=== PATIENT | female | born 1955 | race Caucasian/White ===

== ENCOUNTER 2021-06-04 16:13 | Outpatient (CLI) | payer MEDICARE, SELFPAY ==
--- NOTE | ~2021-06-04 | XR_ITS ---
XR foot RT min 3V DATE: 06/04/2021 16:35 INDICATION: Medial pain, swelling TECHNIQUE: 4 views COMPARISON: None FINDINGS: Mild plantar calcaneal enthesopathy. Mild hallux valgus and bunion deformity. No fracture or dislocation, periosteal reaction or boned destruction. IMPRESSION: Mild hallux valgus and bunion deformity Mild plantar calcaneal enthesopathy Reviewed, dictated and finalized at location B. F ACCOUNTANT
== END 2021-06-04 16:14 | disposition home or self-care (01) ==
LOC: ANHIMG 16:17
PROVIDERS: PCP Family Medicine; Visit Provider Family Medicine
DX: M20.11 Hallux valgus (acquired), right foot (principal); M77.31 Calcaneal spur, right foot
CPT/HCPCS: 73630

== ENCOUNTER 2022-05-16 14:36 | Outpatient (CLI) | payer MEDICARE, SELFPAY ==
--- NOTE | ~2022-05-16 | DEXA_ITS ---
Bone Density Report Name: NATHANIEL HIRSCH Age: 66 Sex: Female Ethnicity: White Date of : 1955 Indication: postmenopausal; screening for osteoporosis; height loss; prior fracture; Referring Provider: CASSIE GONZALES Study: Bone densitometry was performed. Exam Date: May 16, 2022 Accession number: [id number] Bone Density: Region BMD T-score Z-score Classification AP Spine(L1-L4) 1.082 0.3 2.3 Normal Femoral Neck (Left) 0.686 -1.5 0.2 Osteopenia Total Hip (Left) 0.889 -0.4 1.0 Normal Femoral Neck (Right) 0.665 -1.7 0.1 Osteopenia Total Hip (Right) 0.862 -0.7 0.8 Normal Total Hip Mean 0.875 -0.6 0.9 Normal World Health Organization criteria for BMD impression classify patients as: Normal (T-score at or above -1.0), Osteopenia (T-score between -1.0 and -2.5), or Osteoporosis (T-score at or below -2.5). 10-year Fracture Risk: FRAX not reported because: Prior hip or vertebral fracture Clinical Information Provided by Patient: Have had a previous hip or vertebral fracture Has had a low trauma fracture Has used the following medications: Vitamin D, Calcium Patient maximum height was 66 Menopause Age: 53 Onset of menses at age 11 Number of children 4 Impression: The patient has low bone mass, based on the Right Femoral Neck T-score. The patient has risk factors, including: previous fracture. Discussion: INCREASED RISK OF FRACTURE DUE TO HISTORY OF FRACTURE. The patient's previous fracture puts the patient at high risk of a future fracture. In untreated patients, the risk of osteoporotic fracture increases approximately two-fold for each 1.0 SD decrease in T-score. Low bone density is not the only risk factor for fracture; also consider factors such as patient's age, frailty or poor health, risk of falling, risk of injury, previous osteoporotic fracture, family history of osteoporosis, cigarette smoking, low body weight, etc. Not everyone with a low trauma fracture has osteoporosis; osteomalacia and other metabolic bone disorders should also be considered. Patients who have osteoporosis should be evaluated for specific diseases and conditions (secondary causes) that may cause or contribute to bone loss and fracture risk. National Osteoporosis Foundation (NOF) recommends pharmacologic intervention for patients with a prior hip or vertebral fracture regardless of BMD T-score. The patient should follow a healthful lifestyle (good nutrition with adequate calcium and vitamin D, and appropriate weight-bearing exercise). Follow-Up: Consider a repeat BMD and Vertebral Fracture Assessment (VFA) exam in 2 years or sooner if medically necessary, to reassess this patient's status. Reported by: BERKLEY on 05/16/2022 3:15:00 PM. Reviewed, dictated
--- NOTE | ~2022-05-16 | MM_ITS ---
EXAMINATION: MM screening michael BI w darshan HISTORY: Screening TECHNIQUE: Craniocaudal and mediolateral oblique 3-D tomosynthesis images were obtained and synthetic 2-D images were generated. CAD analysis was submitted and interpreted. COMPARISON: 08/30/2004 BREAST PARENCHYMAL COMPOSITION: The breasts are heterogeneously dense, which may obscure small masses . FINDINGS: There is no evidence of suspicious mass, calcification, or architectural distortion to sugg est malignancy in either breast. There has been no suspicious interval change. IMPRESSION: 1. No mammographic evidence of malignancy. 2. Recommend routine screening mammography in one year. BI-RADS Category 1: Negative Reviewed, dictated and finalized at location A. TOE STITCHER
== END 2022-05-16 14:37 | disposition home or self-care (01) ==
LOC: ANHIMG 14:44
PROVIDERS: PCP Family Medicine; Visit Provider Obstetrics & Gynecology Gynecology
DX: Z12.31 Encounter for screening mammogram for malignant neoplasm of breast (principal); Z78.0 Asymptomatic menopausal state; M85.852 Other specified disorders of bone density and structure, left thigh; M85.851 Other specified disorders of bone density and structure, right thigh
CPT/HCPCS: 77063; 77067; 77080

== ENCOUNTER 2024-09-23 09:36 | Outpatient (CLI) | payer MEDICARE, SELFPAY ==
--- NOTE | ~2024-09-23 | MM_ITS ---
Examination: MM screening [facility] BI W darshan INDICATION: Asymptomatic, referred for screening mammogram COMPARISON: 05/16/2022 and 08/30/2004 TECHNIQUE: Digital Breast Tomosynthesis CC, MLO views of Both breasts were obtained with computer-ai ded detection to assist in interpretation of the study. FINDINGS: The breasts are heterogeneously dense, which may obscure small masses. There is a focal asymmetry in the superior lateral left breast centered at 4 cm posterior to the nipp le. No other focal dominant mass, architectural distortion, or suspicious microcalcifications are seen. IMPRESSION: 1. Left breast Focal asymmetry. 2. No evidence of malignancy in the Right breast. RECOMMENDATION: Left breast Diagnostic mammogram with true lateral, appropriate spot compression views and an ultraso und if needed. BI-RADS 0, INCOMPLETE, NEEDS ADDITIONAL IMAGING EVALUATION Reviewed, dictated and finalized at location B. IMPRESSION: 1. Left breast Focal asymmetry. 2. No evidence of malignancy in the Right breast. RECOMMENDATION: Left breast Diagnostic mammogram with true lateral, appropriate spot compressio n views and an ultrasound if needed. BI-RADS 0, INCOMPLETE, NEEDS ADDITIONAL IMAGING EVALUATION
--- OUTSIDE RECORDS SUMMARY | 2024-09-23 09:40 | XMS_ITS | Clinical Summary ---
Author Organization [facility] Address [address] [place] [address] Phone Care Team Providers Care Parachute Harness Rigger Name Role Phone Eliseo Rausch MD Primary Care Provider [phone] Frank Lloyd DO Unavailable Allergies No known active allergies Medications polyethylene glycol (MIRALAX) Powder Mix the entire bottle with 64 oz of a clear liquid. Use as directed by the office for colonoscopy prep. 255 g 0 6 Active Ergocalciferol (VITAMIN D2 PO) Take 1.25 mg by mouth twice a week. Active spironolactone (ALDACTONE) 100 MG Tablet Take 100 mg by mouth 2 times daily. Active Immunizations Immunization Administration Dates Next Due Covid-19, Mrna, Lnp-s, PF, 1 00 mcg/0.5 mL Dose (Moderna) 06/29/2020,06/01/2020 Family History Medical History Relation Name Comments Diabetes Brother Lung Cancer Brother Diabetes Father Hypertension Father Prostate Cancer Father Diabetes Mother Hypertension Mother Cancer Sister Brother Relation Name Status Comments Brother Father Mother Sister Social History Tobacco Use Types Packs/Day Years Used Date Smoking Tobacco: Never Smokeless Tobacco: Never Alcohol Use Standard Drinks/Week Comments No 0 (1 standard drink = 0.6 oz pur e alcohol) Comments Unknown Sex and Gender Information Value Date Recorded Sex Assigned at Not on file Legal Sex Female 3:44 PM CDT Gender Identity Not on file Sexual Orientation Not on file Plan of Treatment Health Maintenance Due Date Last Done Comments DEXA Bone Density 1955 Hepatitis C Virus (HCV) Screening 1955 TdaP Immunization 1955 Cologuard 10/08/2003 Immunochemical Fecal Occult Blood 10/08/2003 Mammogram 10/08/2003 Pneumococcal Immunization (5 0+ years) (1 of 1 - PCV) 10/08/2003 Zoster Immunization (1 of 2) 10/08/2003 Influenza Immunization (#1) 2023 SARS-COV-2 Immunization ( season) 2023 03/01/2021, 06/29/2020, 06/01/2020 Colonoscopy 02/27/2026 02/28/2016 Colorectal Cancer Screening 02/27/2026 Respiratory Syncytial Virus (RSV) Immunization (Adult) (1 - 1-dose 75+ series) 2028 02/28/2016 Hepatitis B Immunization Aged Out No longer eligible based on patient's age to complete this topic Meningococcal Immunization (ACWY) Aged Out No longer eligible b ased on patient's age to complete this topic Rotavirus Immunization Aged Out No lo nger eligible based on patient's age to complete this topic Procedures Procedure Name Priority Date/Time Associated Diagnosis Comments COLONOSCOPY Routine 02/28/2016 from Last 3 Months or Most Recently Relevant to Health Maintenance Results * COLONOSCOPY (02/28/2016) Eliseo Rausch MD PROCEDURE/MINOR SURGICAL O RDERABLES Final Result from Last 3 Months or Most Recently Relevant to Health Maintenance Care Teams Parachute Harness Rigger Relationship Specialty Start Date End Date Eliseo Rausch MD [address] [place] [address] PCP - General Family Medicine 11/14/15 Frank Lloyd DO [address] [place] [address] Gastroenterology 11/14/15
--- OUTSIDE RECORDS SUMMARY | 2024-09-23 09:40 | XMS_ITS | Encounter Summary ---
Author Organization [facility] Address [address] [place] [address] Phone Care Team Providers Care Boat Carpenter Mechanic Name Role Phone Eliseo Rausch MD Primary Care Provider [phone] Nicole Alexander MD Primary Care Provider Eliseo Rausch MD Primary Care Provider [phone] Nicole Alexander MD Primary Care Provider Encounter Details Date Type Department Care Team (Late st Contact Info) Description 08/13/2017 Orders Only [facility] ProviderJana MD [address] [place] [address] Social History Tobacco Use Types Packs/Day Years Used Date Smoking Tobacco: Never Comments Unknown Sex and Gender Information Value Date Recorded Sex Assigned at Not on file Legal Sex Female 2:46 AM TANK STORAGE SUPERVISOR Gender Identity Not on file Sexual Orientation Not on file documented as of this encounter Plan of Treatment Not on file documented as of this encounter Procedures Procedure Name Priority Date/Time Associated Diagnosis Comments DISCHARGE LABORATORY CUMULATIVE REPORT 08/13/2017 12:00 AM CDT documented in this encounter Results * DISCHARGE LABORATORY CUMULATIVE REPORT (08/13/2017 12:00 AM CDT) Narrative 08/13/2017 12:00 AM CDT Ordered by an unspecified provider. us Historical Provider LAB BLOOD ORDERABLES Matilde l Result documented in this encounter Visit Diagnoses Not on filedocumented in this encounter Care Teams Boat Carpenter Mechanic Relationship Specialty Start Date End Date Eliseo Rausch MD [address] [place] [address] PCP - General 08/13/17 08/13/17 Nicole Alexander MD [address] [facility] [address] [address] PCP - General 08/14/17 10/29/17 Eliseo Rausch MD [address] [place] [address] PCP - General 10/30/17 12/12/20 Nicole Alexander MD [address] [facility] [address] [address] PCP - General 12/13/20 documented as of this encounter
--- OUTSIDE RECORDS SUMMARY | 2024-09-23 09:40 | XMS_ITS | Referral Summary ---
Author Organization [facility] Address [address] [place] [address] Care Team Providers Care Scrap Materials Buyer Name Role Phone Nicole Alexander MD Primary Care Provider Allergies No known active allergies Medications spironolactone (ALDACTONE) 100 mg tablet Take 100 mg by mouth daily. Active aspirin 81 mg tablet Take 81 mg by mouth daily. Active VITAMIN D2 50,000 unit capsule 01/06/2018 Active Eliquis 5 mg tablet 01/25/2021 Active Active Problems Problem Noted Date Diagnosed Date Closed fracture of acetabulum 02/20/2021 Closed fracture of navicular bone of foot 2020 Calculus of kidney 07/30/2017 Calculus of ureter 07/30/2017 Complete tear of rotator cuff 07/12/2013 Arthralgia of shoulder 07/11/2013 Social History Tobacco Use Types Packs/Day Years Used Date Smoking Tobacco: Never Smokeless Tobacco: Never Tobacco Cessation:Counseling Given: No Alcohol Use Standard Drinks/Week Comments No 0 (1 standard drink = 0.6 oz pur e alcohol) AUDIT-C Answer Date Recorded Q1: How often do you have a drink containing alc ohol? Never 03/04/2021 Average Number of Drinks Not on file 021 Frequency of Binge Drinking Not on file 02/18 Comments No Sex and Gender Information Value Date Recorded Sex Assigned at Not on file Legal Sex Female 2:46 AM HANDLING TECH Gender Identity Not on file Sexual Orientation Not on file Last Filed Vital Signs Vital Sign Reading Time Taken Comments Blood Pressure 148/87 03/13/2021 11:11 AM HANDLING TECH Pulse 84 03/13/2021 11:11 AM HANDLING TECH Temperature 36.7 C (98.1 F) 03/13/2021 11:11 AM HANDLING TECH Respiratory Rate 16 03/13/2021 11:1 1 AM HANDLING TECH Oxygen Saturation 95% 03/13/2021 11: 11 AM HANDLING TECH Inhaled Oxygen Concentration - - Weight 73.3 kg (161 lb 11.2 oz) 021 11:11 AM HANDLING TECH Height 167.6 cm (5' 6) 03/13/2021 11:1 1 AM HANDLING TECH Body Mass Index 26.1 03/13/2021 11:11 AM HANDLING TECH Plan of Treatment Not on file Medical Devices Implanted Type Area Expansion Joint Finisher Device Identifier Shelf Expiration Date Model / Serial / Lot [employer] Inlay [place] 6fr 24cm Pusher Fluoro Marker Atraumatic Insertion - [id number] Implanted:Qty: 1 on 09/22/2017 by Alvaro Gee MD at [facility] Stent Right: Urethra [employer] 02/27/2022 [id number] / / Description:Bard InLay Optim a 6x24 Insurance [email or web address] PPO MEDICARE [employer] CLAIMS OFFICE AETNA SENIOR SUPPLEMENT CIGNA MEDICARE AETNA SENIOR SUPPLEMENT Care Teams Scrap Materials Buyer Relationship Specialty Start Date End Date Nicole Alexander MD [address] [facility] [address] [place] [address] PCP - General 12/13/20
--- OUTSIDE RECORDS SUMMARY | 2024-09-23 09:40 | XMS_ITS | Clinical Summary ---
Author Organization [facility] Address [address] [place] [address] Care Team Providers Care Supervisory Forester Name Role Phone Nicole Alexander MD Primary [...] rotator cuff 07/12/2013 Arthralgia of shoulder 07/11/2013 Surgical History Surgery Date Site/Laterality Comments ROTATOR CUFF REPAIR 04/20/2013 - 04/19/2014 Right CATARACT EXTRACTION, BILATERAL 03/20/2016 - 04/19/2016 Bilateral INTRAOCULAR LENS INSERTION EYE SURGERY CATARACT EXTRACTION Bilateral Medical History Medical History Date Comments Kidney stone Cataract Arthritis Eye trauma 01/14/2021 OS orbital floor fracture with lateral wall fracture, minimally displaced left ZMC fracture Family History Medical History Relation Name Comments Diabetes Brother 1 Family history of diabetes mellitus - (Added by TW Conv) Gout Brother 2 Family history of gout - (Added by TW Conv) Hemochromatosis Brother 3 Family histo ry of hemochromatosis - (Added by TW Conv) Cancer Father Family history of malignant neoplasm - (Added by TW Conv) Diabetes Father Family history of diabetes mellitus - (Added by TW Conv) Hypertension Father Family history of hypertension - (Added by TW Conv) Arthritis Mother Family history of arthritis - (Added by Conv) Diabetes Mother Family history of diabetes mellitus - (Added by Conv) Hypertension Mother Family history of hypertension - (Added by Conv) Stroke Mother Family history of cerebrovascular accident - (Added by Conv) Cancer Sister Family history of malignant neoplasm - (Added by Conv) Glaucoma Neg Hx Macular degeneration Neg Hx Relation Name Status Comments Brother 1 Brother 2 Brother 3 Father Mother Sister Social History Tobacco Use Types Packs/Day Years Used Date Smoking Tobacco: Never Smokeless Tobacco: Never Tobacco Cessation:Counseling Given: No Alcohol Use Standard Drinks/Week Comments No 0 (1 standard drink = 0.6 oz pur e alcohol) AUDIT-C Answer Date Recorded Q1: How often do you have a drink containing alc ohol? Never 03/04/2021 Average Number of Drinks Not on file Frequency of Binge Drinking Not on file 02/18 Comments No Sex and Gender Information Value Date Recorded Sex Assigned at Not on file Legal Sex Female 2:46 AM DIGITAL IMAGING SPECIALIST Gender Identity Not on file Sexual Orientation Not on file Obstetrics History Last Filed Vital Signs Vital Sign Reading Time Taken Comments Blood Pressure 148/87 03/13/2021 11:11 AM DIGITAL IMAGING SPECIALIST Pulse 84 03/13/2021 11:11 AM DIGITAL IMAGING SPECIALIST Temperature 36.7 C (98.1 F) 03/13/2021 11:11 AM DIGITAL IMAGING SPECIALIST Respiratory Rate 16 03/13/2021 11:1 1 AM DIGITAL IMAGING SPECIALIST Oxygen Saturation 95% 03/13/2021 11: 11 AM DIGITAL IMAGING SPECIALIST Inhaled Oxygen Concentration - - Weight 73.3 kg (161 lb 11.2 oz) 021 11:11 AM DIGITAL IMAGING SPECIALIST Height 167.6 cm (5' 6) 03/13/2021 11:1 1 AM DIGITAL IMAGING SPECIALIST Body Mass Index 26.1 03/13/2021 11:11 AM DIGITAL IMAGING SPECIALIST Plan of Treatment Not on file Medical Devices Implanted Type Area Grounds Worker Device Identifier Shelf Expiration Date Model / Serial / Lot [employer] Inlay [place] 6fr 24cm Pusher Fluoro Marker Atraumatic Insertion - [id number] Implanted:Qty: 1 on 09/22/2017 by Alvaro Gee MD at [facility] Stent Right: Urethra [employer] 02/27/2022 [id number] / / Description:Bard InLay Optim a 6x24 Insurance [facility] PPO [facility]IC[facility] [employer] CLAIMS OFFICE AETNA SENIOR SUPPLEMENT CIGNA MEDICARE AETNA SENIOR SUPPLEMENT Care Teams Supervisory Forester Relationship Specialty Start Date End Date Nicole Alexander MD [address] [facility] [address] [place] [address] [facility] - General 12/13/20
== END 2024-09-23 09:37 | disposition home or self-care (01) ==
LOC: ANHIMG 09:37
PROVIDERS: PCP Family Medicine; Visit Provider Obstetrics & Gynecology Gynecology
DX: Z12.31 Encounter for screening mammogram for malignant neoplasm of breast (principal); R92.8 Other abnormal and inconclusive findings on diagnostic imaging of breast
CPT/HCPCS: 77063; 77067

== ENCOUNTER 2024-12-02 12:10 | Outpatient (CLI) | payer MEDICARE, SELFPAY ==
--- NOTE | ~2024-12-02 | MMUS_ITS ---
EXAMINATION: MM diagnostic michael LT w darshan, US breast LT limited HISTORY: Follow-up left breast asymmetry TECHNIQUE: Additional 3-D tomosynthesis images of the left breast were performed and synthetic 2-D im ages were generated. CAD analysis was submitted and interpreted. High resolution Limited left breast ultrasound was performed. COMPARISON: Comparison to multiple prior studies sequentially, with oldest reviewed study dated 05/16. BREAST PARENCHYMAL COMPOSITION: Dense: The breasts are heterogeneously dense, which may obscure small masses FINDINGS: MAMMOGRAPHIC FINDINGS: There is a spiculated mass in the upper outer quadrant of the left breast, posterior third. There are no suspicious calcifications. ULTRASOUND: Limited left breast ultrasound: At 12:30, 4 cm from the nipple there is an irregular shaped hypoechoi c mass measuring 7 x 5 x 4 mm without internal vascularity or significant posterior features. This co rresponds to the area of mammographic abnormality. At 1:00, 8 cm from the nipple there is an intramam dennys lymph node measuring 9 mm. In the subcutaneous tissues of the left breast at 1:00, 5 cm from the nipple there is a small cystic mass measuring 2 mm, likely sebaceous cysts. At 3:00, 3 cm from the n ipple there is a 7 mm cyst. In the left axilla there is normal left axillary lymph nodes. IMPRESSION: 1. Suspicious left breast mass at 12:30, 4 cm from the nipple corresponding to the area of mammograph ic abnormality. 2. Recommend ultrasound-guided left breast biopsy. BI-RADS category 5, highly suggestive of malignancy. Reviewed, dictated and finalized at location A. IMPRESSION: 1. Suspicious left breast mass at 12:30, 4 cm from the nipple corresponding to the area of mammographic abnormality. 2. Recommend ultrasound-guided left breast biopsy. BI-RADS category 5, highly suggestive of malignancy.
--- OUTSIDE RECORDS SUMMARY | 2024-12-02 12:13 | XMS_ITS | Encounter Summary ---
Author Organization [facility] Address [address] [place] [address] Phone Care Team Providers Care Forensic Document Examiner Name Role Phone Eliseo Rausch MD Primary Care Provider [phone] Nicole Alexander MD Primary Care Provider Eliseo Rausch MD Primary Care Provider [phone] Nicole Alexander MD Primary Care Provider Encounter Details Date Type Department Care Team (Late st Contact Info) Description 08/13/2017 Orders Only [facility] ProviderJana MD [address] [place] [address] Social History Tobacco Use Types Packs/Day Years Used Date Smoking Tobacco: Never Comments Unknown Sex and Gender Information Value Date Recorded Sex Assigned at Not on file Legal Sex Female 2:46 AM GRID INSPECTOR Gender Identity Not on file Sexual Orientation [...] AM CDT Ordered by an unspecified provider. Historical Provider LAB BLOOD ORDERABLES Matilde l Result documented in this encounter Visit Diagnoses Not on filedocumented in this encounter Care Teams Forensic Document Examiner Relationship Specialty Start Date End Date Eliseo Rausch MD [address] [place] [address] PCP - General 08/13/17 08/13/17 Nicole Alexander MD [address] [facility] [address] [place] [address] PCP - General 08/14/17 10/29/17 Eliseo Rausch MD [address] [place] [address] PCP - General 10/30/17 12/12/20 Nicole Alexander MD [address] [facility] [address] [place] [address] PCP - General 12/13/20 documented as of this encounter
--- OUTSIDE RECORDS SUMMARY | 2024-12-02 12:13 | XMS_ITS | Clinical Summary ---
Author Organization [facility] Address [address] [place] [address] Care Team Providers Care Psychology Associate Name Role Phone Nicole Alexander MD Primary [...] history of hypertension - (Added by Conv) Arthritis Mother Family history of arthritis [...] on file Legal Sex Female 2:46 AM BUTCHER ASSISTANT Gender Identity Not on file Sexual Orientation Not on file Obstetrics History Last Filed Vital Signs Vital Sign Reading Time Taken Comments Blood Pressure 148/87 03/13/2021 11:11 AM BUTCHER ASSISTANT Pulse 84 03/13/2021 11:11 AM BUTCHER ASSISTANT Temperature 36.7 C (98.1 F) 03/13/2021 11:11 AM BUTCHER ASSISTANT Respiratory Rate 16 03/13/2021 11:1 1 AM BUTCHER ASSISTANT Oxygen Saturation 95% 03/13/2021 11: 11 AM BUTCHER ASSISTANT Inhaled Oxygen Concentration - - Weight 73.3 kg (161 lb 11.2 oz) 021 11:11 AM BUTCHER ASSISTANT Height 167.6 cm (5' 6) 03/13/2021 11:1 1 AM BUTCHER ASSISTANT Body Mass Index 26.1 03/13/2021 11:11 AM BUTCHER ASSISTANT Plan of Treatment Not on file Medical Devices Implanted Type Area Nitriles Lab Technician Device Identifier Shelf Expiration Date Model / Serial / Lot [employer] Inlay [place] 6fr 24cm Pusher Fluoro Marker Atraumatic Insertion - [id number] Implanted:Qty: 1 on 09/22/2017 by Alvaro Gee MD at [facility] Stent Right: Urethra [employer] 02/27/2022 [id number] / / Description:Bard Shanna caruso 6x24 Insurance [facility] PPO MEDICARE HUMAN CLAIMS OFFICE AETNA SENIOR SUPPLEMENT CIGNA MEDICARE AETNA SENIOR SUPPLEMENT Care Teams Psychology Associate Relationship Specialty Start Date End Date Nicole Alexander MD [address] [facility] [address] [facility] [address] [place] [address] PCP - General 12/13/20
--- OUTSIDE RECORDS SUMMARY | 2024-12-02 12:13 | XMS_ITS | Clinical Summary ---
Author Organization [facility] Address [address] [place] [address] Phone Care Team Providers Care Call Taker Name Role Phone Eliseo Rausch MD Primary Care Provider [phone]- [phone] Frank Lloyd DO Unavailable [phone] Allergies No known active allergies Medications polyethylene [...] Health Maintenance Due Date Last Done Comments Hepatitis C Virus (HCV) Screening 1955 TdaP Immunization 1955 Cologuard 1998 Immunochemical Fecal Occult Blood 1998 Pneumococcal Immunization (5 0+ years) (1 of 1 - PCV) 10/08/2003 Zoster Immunization (1 of 2) 10/08/2003 SARS-COV-2 Immunization (4 - season) 2023 03/01/2021, 06/29/2020, 06/01/2020 Influenza Immunization (#1) 2024 Colonoscopy 02/27/2026 02/28/2016 Colorectal Cancer Screening 02/27/2026 Respiratory Syncytial Virus (RSV) Immunization (Adult) (1 - 1-dose 75+ series) 2028 Hepatitis B Immunization Aged Out No longer eligible based on patient's age to complete this topic Human Papillomavirus (HPV) Immunization Aged Out No longer eligible b ased [...] Recently Relevant to Health Maintenance Care Teams Call Taker Relationship Specialty Start Date End Date Eliseo Rausch MD [address] [place] [address] PCP - General Family Medicine 11/14/15 Frank Lloyd DO [address] [place] [address] Gastroenterology 11/14/15
== END 2024-12-02 12:11 | disposition home or self-care (01) ==
LOC: ANHIMG 12:11
PROVIDERS: PCP Family Medicine; Visit Provider Obstetrics & Gynecology Gynecology
DX: R92.8 Other abnormal and inconclusive findings on diagnostic imaging of breast (principal)
CPT/HCPCS: 76642; 77061; 77065; G0279

== ENCOUNTER 2024-12-26 07:21 | Outpatient (CLI) | payer MEDICARE, SELFPAY ==
--- NOTE | ~2024-12-26 | MMUS_ITS ---
PROCEDURE: US breast biopsy LT w image, MM post biopsy diagnostic LT CLINICAL HISTORY: 69-year-old female with suspicious left breast mass at 12:30 o'clock, presents for ultrasound-guided core needle biopsy procedure. COMPARISON: Ultrasound 12/02/2024 Following informed consent including risks, benefits, and possible complications, the patient was brought to the ultrasound suite. A time-out procedure was performed. A preliminary ultrasound of the left breast was performed, redemonstrating irregular shaped hypoechoic mass at 12:30, 4 cm from the nipple. The patient was prepped and draped in the usual sterile fashion. 1% lidocaine was instilled into the subcutaneous tissues. 1% lidocaine without epinephrine was injected into the deep tissues just inferior to the lesion. Approximately 15cc lidocaine was administered. A small skin fahad was made. Multiple core samples were obtained with a 13-gauge vacuum assisted biopsy needle. A post biopsy butterfly hydromark marker was placed at the biopsy site. Postprocedural mammogram of the left breast in craniocaudal and mediolateral projections reveal the post biopsy metal marker in good position. The patient tolerated the procedure well and was without immediate postprocedural complications. IMPRESSION: Successful ultrasound guided biopsy of left breast mass. A post biopsy butterfly hydromark marker was placed at the biopsy site, which is seen on postprocedural mammogram. The patient tolerated the procedure well without immediate postprocedure complications. The patient was given postprocedural instructions and sent home in stable condition. Reviewed, dictated and finalized at location B. IMPRESSION: Successful ultrasound guided biopsy of left breast mass. A post bio psy butterfly hydromark marker was placed at the biopsy site, which is seen on postprocedural mammogram. The patient tolerated the procedure well without immediate postprocedure compli cations. The patient was given postprocedural instructions and sent home in sta ble condition.
--- NOTE | 2024-12-26 08:38 | S_PTH ---
PATIENT: Migdalia Bond LOC: [facility] U#:[id number] AGE/SX: 69/F ROOM: RE12/26/[address]: Sherry Garcia MD : [id number] BED: DIS: 12/26/2024 SPEC #: [id number] RECD: 12/26/24 09:49 STATUS: JARROD SALCIDO #: [id number] GAYE: 12/26/24 08:[address]: Sherry Garcia DEPT: [facility] Surgical RECD BY: Bora Lagos ENTERED: 12/26/24 09:49 SP TYPE: Surgical OTHR DR: Nicole Alexander MD Tissues: A - Breast Biopsy Procedures: Hematoxylin and Eosin Stain E-Cadherin Gross and Microscopic Level 4 ER-60 CO-60 MIB-60 HER 2-60
== END 2024-12-26 07:22 | disposition home or self-care (01) ==
LOC: ANHFOHIMG 07:22
PROVIDERS: PCP Family Medicine; Visit Provider Surgery
DX: N63.25 Unspecified lump in the left breast, overlapping quadrants (principal); R92.8 Other abnormal and inconclusive findings on diagnostic imaging of breast
CPT/HCPCS: 19083; 77065; 88305; 88342; 88360; A4648

== ENCOUNTER 2025-01-04 13:40 | Outpatient (CLI) | payer MEDICARE, SELFPAY ==
--- NOTE | ~2025-01-04 | MR_ITS ---
MR breast BI wo/w con INDICATION:69 year old female with newly diagnosed left breast invasive lobular carcinoma at ultrasound-guided core needle biopsy of a mass at 12:30 o'clock completed on 12/26/2024. She presents for evaluation of extent of disease. TECHNIQUE: MRI of the breasts perform using standard protocol pre-and post IV contrast with the following sequences: Axial T2 STIR, axial T1, axial vibrant T1 with fat suppression precontrast and multiphasic postcontrast. 14 cc MultiHance administered intravenously. COMPARISON: Mammogram and ultrasound dated 09/23/2024 and 12/26/2024. FINDINGS: There is Heterogeneous fibroglandular tissue that demonstrates Mild and is Symmetric. Right breast: There are no abnormalities on the precontrast sequences. There is mild background parenchymal enhancement with background parenchymal nodular enhancement pattern. Linear skin enhancement seen in the inferior lateral right breast demonstrate features compatible with fat necrosis related to previous surgery. No areas of enhancement meeting threshold criteria on CAD analysis. Nipple areolar complex is normal in appearance. No evidence of signal abnormalities in the axillary or internal mammary node distributions. LEFT BREAST: There is a 1.4 x 1.2 cm enhancing mass containing biopsy clip artifact in the superior lateral at middle to posterior location. This lesion correlates to the known biopsy-proven breast malignancy. Postbiopsy changes are noted that extend to the overlying skin, however there is no involvement of the overlying skin, nipple and areolar complex all the chest wall. There is mild background parenchymal nodular enhancement pattern. No other enhancing lesions following contrast administration. The nipple areolar complex is normal in appearance. No evidence of signal abnormalities in the axillary or internal mammary node distributions.] IMPRESSION: 1: Left breast 1.4 cm enhancing mass containing biopsy clip artifact in the superior lateral location correlates to the known biopsy-proven breast malignancy. No involvement of the overlying skin, nipple areolar complex or a chest wall. 2. No evidence of malignancy within the right breast. 3. The chest wall and axillary portion of the examination are unremarkable. RECOMMENDATION: Continue appropriate medical oncology, and surgical oncology management. BI-RADS 6, BIOPSY PROVEN MALIGNANCY Reviewed, dictated and finalized at location B. IMPRESSION: 1: Left breast 1.4 cm enhancing mass containing biopsy clip artifact in the berger perior lateral location correlates to the known biopsy-proven breast malignancy . No involvement of the overlying skin, nipple areolar complex or a chest wall. 2. No evidence of malignancy within the right breast. 3. The chest wall and axillary portion of the examination are unremarkable. RECOMMENDATION: Continue appropriate medical oncology, and surgical oncology management. BI-RADS 6, BIOPSY PROVEN MALIGNANCY
--- OUTSIDE RECORDS SUMMARY | 2025-01-04 14:04 | XMS_ITS | Encounter Summary ---
Author Organization [facility] Address [address] [place] [address] Phone Care Team Providers Care Juvenile Justice Specialist Name Role Phone Eliseo Rausch MD Primary Care Provider [phone] Nicole Alexander MD Primary Care Provider Eliseo Rausch MD Primary Care Provider [phone] Nicole Alexander MD Primary Care Provider Encounter Details Date Type Department Care Team (Late st Contact Info) Description 08/13/2017 Orders Only [facility] ProviderJana MD [address] [place] [address] Social History Tobacco Use Types Packs/Day Years Used Date Smoking Tobacco: Never Comments Unknown Sex and Gender Information Value Date Recorded Sex Assigned at Not on file 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 Gender Identity Not on file Sexual Orientation [...] on filedocumented in this encounter Care Teams Juvenile Justice Specialist Relationship Specialty Start Date End Date Eliseo Rausch MD [address] [place] [address] PCP - General 08/13/17 08/13/17 Nicole Alexander MD [address] [facility] [address] [place] [address] PCP - General 08/14/17 10/29/17 Eliseo Rausch MD [address] [place] [address] PCP - General 10/30/17 12/12/20 Nicole Alexander MD [address] [facility] [address] [place] [address] PCP - General 12/13/20 documented as of this encounter
--- OUTSIDE RECORDS SUMMARY | 2025-01-04 14:04 | XMS_ITS | Clinical Summary ---
Author Organization [facility] Address [address] [place] [address] Phone Care Team Providers Care Securities Settlement Processor Name Role Phone Eliseo Rausch MD Primary Care Provider [phone]- [phone] Frank Lloyd DO Unavailable [phone] Allergies No known active allergies Medications [...] Recently Relevant to Health Maintenance Care Teams Securities Settlement Processor Relationship Specialty Start Date End Date Eliseo Rausch MD [address] [place] [address] PCP - General Family Medicine 11/14/15 Frank Lloyd DO [address] [place] [address] Gastroenterology 11/14/15
--- OUTSIDE RECORDS SUMMARY | 2025-01-04 14:04 | XMS_ITS | Clinical Summary ---
Author Organization [facility] Ryan linton [facility] Address [address] [place] [address] Care Team Providers Care Spooler Name Role Phone Unavailable Primary Care Provider Unavailabl e Social History Tobacco Use Types Packs/Day Years Used Date Smoking Tobacco: Never Assessed Comments Unknown Sex and Gender Information Value Date Recorded Sex Assigned at Not on file Legal Sex Female 10:26 AM CDT Gender Identity Not on file Sexual Orientation Not on file Plan of Treatment Upcoming Encounters Date Type Department Care Team (Late st Contact Info) Description 01/10/2025 10:30 AM CDT Office Visit [facility] Oncology and Hematology - [place] [address] [facility] [address] [place] [address] Lamont Sanderson MD [address] [facility] [address] [place] [address] Health Maintenance Due Date Last Done Comments DTAP/TDAP/TD VACCINES (1 - Tdap) 1972 BREAST CANCER SCREENING 1993 COLORECTAL SCREENING 1998 Colorectal Cancer Screening 1998 FIT-DNA Q 3 years 1998 FIT/FOBT Q 1 year 1998 Flex Sig/CT Colonography Q 5 years 1998 PNEUMOCOCCAL VACCINE 50+ YEARS (1 of 1 - PCV) 10/08/19 ZOSTER VACCINE (1 of 2) 10/08/2003 OSTEOPOROSIS SCREENING 2018 INFLUENZA VACCINE (#1) 2024 RSV VACCINE (60+ or ) (1 - 1-dose 75+ series) 2028 Insurance MEDICARE PART A AND B AETNA MEDICARE SUPP AESSI
--- OUTSIDE RECORDS SUMMARY | 2025-01-04 14:05 | XMS_ITS | Clinical Summary ---
Author Organization 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 Gender Identity Not on file Sexual Orientation Not on file Obstetrics History Last Filed Vital Signs Vital Sign Reading Time Taken Comments Blood Pressure 148/87 03/13/2021 11:11 AM MASTER AUTOMOTIVE TECHNICIAN Pulse 84 03/13/2021 11:11 AM MASTER AUTOMOTIVE TECHNICIAN Temperature 36.7 C (98.1 F) 03/13/2021 11:11 AM MASTER AUTOMOTIVE TECHNICIAN Respiratory Rate 16 03/13/2021 11:1 1 AM MASTER AUTOMOTIVE TECHNICIAN Oxygen Saturation 95% 03/13/2021 11: 11 AM MASTER AUTOMOTIVE TECHNICIAN Inhaled Oxygen Concentration - - Weight 73.3 kg (161 lb 11.2 oz) 021 11:11 AM MASTER AUTOMOTIVE TECHNICIAN Height 167.6 cm (5' 6) 03/13/2021 11:1 1 AM MASTER AUTOMOTIVE TECHNICIAN Body Mass Index 26.1 03/13/2021 11:11 AM MASTER AUTOMOTIVE TECHNICIAN Plan of Treatment Not on file Medical Devices Implanted Type Area Vp Biology Device Identifier Shelf Expiration Date Model / Serial / Lot [employer] Inlay Nettie 6fr 24cm Pusher Fluoro Marker Atraumatic Insertion - [id number] Implanted:Qty: 1 on 09/22/2017 by Alvaro Gee MD at [facility] Stent Right: Urethra [employer] 02/27/2022 [id number] / / Description:Bard Shanna caruso 6x24 Insurance [facility] PPO MEDICARE HUMAN CLAIMS OFFICE AETNA SENIOR SUPPLEMENT CIGNA MEDICARE AETNA SENIOR SUPPLEMENT Care Teams Electro Mechanical Assembler Relationship Specialty Start Date End Date Nicole Alexander MD [address] [facility] [address] [facility] [address] [place] [address] PCP - General 12/13/20
== END 2025-01-04 13:41 | disposition home or self-care (01) ==
PROVIDERS: PCP Family Medicine; Visit Provider Surgery
DX: N63.25 Unspecified lump in the left breast, overlapping quadrants (principal)
CPT/HCPCS: 77049; A9577; C8908

== ENCOUNTER 2025-01-20 14:22 | Outpatient (CLI) | payer MEDICARE, SELFPAY ==
--- OUTSIDE RECORDS SUMMARY | 2025-01-20 14:27 | XMS_ITS | Clinical Summary ---
Author Organization [facility] Address [address] [place] [address] Phone Care Team Providers Care Human Resources Services Specialist Name Role Phone Eliseo Rausch MD Primary Care Provider [phone] Frank Lloyd DO Unavailable [phone] Allergies No known active allergies Medications [...] (1 of 2) 10/08/2003 Influenza Immunization (#1) 2024 SARS-COV-2 Immunization ( season) 2024 03/01/2021, 06/29/2020, 06/01/2020 Colonoscopy 02/27/2026 02/28/2016 Colorectal [...] Recently Relevant to Health Maintenance Care Teams Human Resources Services Specialist Relationship Specialty Start Date End Date Eliseo Rausch MD [address] [place] [address] PCP - General Family Medicine 11/14/15 Frank Lloyd DO [address] [place] [address] Gastroenterology 11/14/15
--- OUTSIDE RECORDS SUMMARY | 2025-01-20 14:27 | XMS_ITS | Clinical Summary ---
Author Organization [facility] Ryan linton Kait Address [address] [place] [address] Care Team Providers Care Leno Sewer Name Role Phone Unavailable Primary Care Provider Unavailabl e Allergies No known active allergies Medications spironolactone (ALDACTONE) 100 mg tablet Take 100 mg by mouth 2 times daily. Active Active Problems No known active problems Encounters Date Type Department Care Team Description 01/17/2025 External Device Data ST[facility] ABSTRACTION Provider, Abstract 01/17/2025 External Device Data [facility] ABSTRACTION Provider, Abstract 01/17/2025 External Device Data [facility] ABSTRACTION Provider, Abstract 01/10/2025 10:30 AM CDT Office Visit [facility] Oncology and [facility] [address] [place] [address] Lamont Sanderson MD Malignant neoplasm of upper-outer quadrant of left breast in female, estrogen receptor positive (CMS/HCC) (Primary Dx) 01/09/2025 Abstract [facility] Oncology [facility] [address] [place] [address] Lamont Sanderson MD from Last 3 Months Family History Medical History Relation Name Comments Liver Cancer Brother 1 No Known Problems Brother 2 Cancer - Other Brother 3 abd No Known Problems Brother 4 Testicular Cancer Child 1 Breast Cancer Child 2 No Known Problems Child 3 No Known Problems Child 4 Diabetes Father Lung Cancer Father Diabetes Mother Breast Cancer Sister Relation Name Status Comments Brother 1 Brother 2 Alive Brother 3 Alive Brother 4 Alive Child 1 Alive Child 2 Alive Child 3 Alive Child 4 Alive Father Mother Sister Social History Tobacco Use Types Packs/Day Years Used Date Smoking Tobacco: Never Smokeless Tobacco: Never Tobacco Cessation:Counseling Given: Not Answered Alcohol Use Standard Drinks/Week Comments Never 0 (1 standard drink = 0.6 oz pur e alcohol) Comments Unknown Sex and Gender Information Value Date Recorded Sex Assigned at Not on file Legal Sex Female 10:26 AM CDT Gender Identity Not on file Sexual Orientation Not on file Last Filed Vital Signs Vital Sign Reading Time Taken Comments Blood Pressure 164/106 01/10/2025 10:41 AM CDT Pulse 82 01/10/2025 10:37 AM CDT Temperature 36.2 C (97.2 F) 01/10/2025 10:37 AM CDT Respiratory Rate 16 01/10/2025 10:37 AM CDT Oxygen Saturation 97% 01/10/2025 10:37 AM CDT Inhaled Oxygen Concentration - - Weight 74.5 kg (164 lb 3.2 oz) 01/10/2025 10:37 AM CDT Height 167.6 cm (5' 6) 01/10/2025 10:37 AM CDT Body Mass Index 26.5 01/10/2025 10:37 AM CDT Plan of Treatment Upcoming Encounters Date Type Department Care Team (Late st Contact Info) Description 02/22/2025 11:15 AM NEUROLOGICAL PHYSIOTHERAPIST Office Visit [facility] Oncology and Hematology [facility] [address] [place] [address] [facility] [address] [place] [address] Lamont Sanderson MD [address] [facility] [address] [place] [address] Health Maintenance Due Date Last Done Comments DTAP/TDAP/TD VACCINES (1 - Tdap) 1972 FIT-DNA Q 3 years 1998 FIT/FOBT Q 1 year 1998 Flex Sig/CT Colonography Q 5 years 1998 PNEUMOCOCCAL VACCINE 50+ YEA RS (1 of 1 - PCV) 10/08/2003 ZOSTER VACCINE (1 of 2) 10/08/2003 OSTEOPOROSIS SCREENING 2018 BREAST CANCER SCREENING 03/05/2021 03/05/20, 04/02/2018, 04/01/2017, Additional history exists INFLUENZA VACCINE (#1) 2024 COVID-19 Vaccine (3 2024-2 6 season) 2024 06/29/2020, 06/01/2020 COLORECTAL SCREENING 02/27/2026 02/28/2016 Colorectal Cancer Screening 02/27/2026 RSV VACCINE (60+ or ) (1 - 1-dose 75+ series) 2028 Insurance MEDICARE PART A AND B AETNA MEDICARE SUPP AESSI
--- OUTSIDE RECORDS SUMMARY | 2025-01-20 14:27 | XMS_ITS | Clinical Summary ---
Author Organization [facility] Address [address] [place] [address] Care Team Providers Care Delicatessen Goods Stock Clerk Name Role Phone Nicole Alexander MD Primary [...] on file Legal Sex Female 2:46 AM JAVA PROGRAMMER Gender Identity Not on file Sexual Orientation Not on file Obstetrics History Last Filed Vital Signs Vital Sign Reading Time Taken Comments Blood Pressure 148/87 03/13/2021 11:11 AM JAVA PROGRAMMER Pulse 84 03/13/2021 11:11 AM JAVA PROGRAMMER Temperature 36.7 C (98.1 F) 03/13/2021 11:11 AM JAVA PROGRAMMER Respiratory Rate 16 03/13/2021 11:1 1 AM JAVA PROGRAMMER Oxygen Saturation 95% 03/13/2021 11: 11 AM JAVA PROGRAMMER Inhaled Oxygen Concentration - - Weight 73.3 kg (161 lb 11.2 oz) 021 11:11 AM JAVA PROGRAMMER Height 167.6 cm (5' 6) 03/13/2021 11:1 1 AM JAVA PROGRAMMER Body Mass Index 26.1 03/13/2021 11:11 AM JAVA PROGRAMMER Plan of Treatment Not on file Medical Devices Implanted Type Area Partition Notcher Device Identifier Shelf Expiration Date Model / Serial / Lot [employer] Inlay [place] 6fr 24cm Pusher Fluoro Marker Atraumatic Insertion - [id number] Implanted:Qty: 1 on 09/22/2017 by Alvaro Gee MD at [facility] Stent Right: Urethra [employer] 02/27/2022 [id number] / / Description:Bard Shanna caruso 6x24 Insurance [facility] PPO MEDICARE HUMAN CLAIMS OFFICE AETNA SENIOR SUPPLEMENT CIGNA MEDICARE AETNA SENIOR SUPPLEMENT Care Teams Delicatessen Goods Stock Clerk Relationship Specialty Start Date End Date Nicole Alexander MD [address] [facility] [address] [facility] [address] [place] [address] PCP - General 12/13/20
--- OUTSIDE RECORDS SUMMARY | 2025-01-20 14:27 | XMS_ITS | Encounter Summary ---
Author Organization [facility] Address [address] [place] [address] Phone Care Team Providers Care Boarding Specialist Name Role Phone Eliseo Rausch MD Primary Care Provider [phone] Nicole Alexander MD Primary Care Provider Eliseo Rausch MD Primary Care Provider [phone] Nicole Alexander MD Primary Care Provider Encounter Details Date Type Department Care Team (Late st Contact Info) Description 08/13/2017 Orders Only [facility] ProviderJana MD [address] [place] [address] Social History Tobacco Use Types Packs/Day Years Used Date Smoking Tobacco: Never Comments Unknown Sex and Gender Information Value Date Recorded Sex Assigned at Not on file Legal Sex Female 2:46 AM PROBATE CLERK Gender Identity Not on file Sexual Orientation [...] on filedocumented in this encounter Care Teams Boarding Specialist Relationship Specialty Start Date End Date Eliseo Rausch MD [address] [place] [address] PCP - General 08/13/17 08/13/17 Nicole Alexander MD [address] [facility] [address] [place] [address] PCP - General 08/14/17 10/29/17 Eliseo Rausch MD [address] [place] [address] PCP - General 10/30/17 12/12/20 Nicole Alexander MD [address] [facility] [address] [place] [address] PCP - General 12/13/20 documented as of this encounter
--- NOTE | 2025-01-20 14:30 | ECG_ITS ---
Test Date: 2025-01-20 14:36:52 Measurements Intervals [place] Rate: 89 P: 29 ND: 156 QRS: 30 QRSD: 71 T: 29 QT: 347 QTc: 424 Interpretive Statements SINUS RHYTHM VOLTAGE CRITERIA FOR LVH BORDERLINE ST-T WAVE ABNORMALITY- INFERIOR LEADS BORDERLINE ECG No previous ECG available for comparison Electronically Signed On 01-20-2025 15:37:25 CDT by hSa Abarca D.O.
[2025-01-20 14:55] LABS: Anion Gap 12 mmol/L (4-12); Blood Urea Nitrogen 15 mg/dL (7-17); Calcium 10.1 mg/dL (8.4-10.2); Carbon Dioxide 24 mmol/L (22-30); Chloride 100 mmol/L (98-107); Estimated Glomerular Filt Rate 58; Glucose 113 mg/dL (65-110); Potassium 4.3 mmol/L (3.4-5.0); Sodium 136 mmol/L (137-145)
== END 2025-01-20 14:23 | disposition home or self-care (01) ==
LOC: ANHSURGERY 14:24
PROVIDERS: Anesthesiology; PCP Family Medicine; Visit Provider Surgery
DX: C50.912 Malignant neoplasm of unspecified site of left female breast (principal); I10 Essential (primary) hypertension; Z01.818 Encounter for other preprocedural examination
CPT/HCPCS: 36415; 80048; 86850; 86900; 86901; 93005

== ENCOUNTER 2025-01-24 00:41 | Day surgery (SDC) | payer MEDICARE, SELFPAY ==
--- NOTE | 2025-01-20 09:42 | PC.NURSE ---
[facility] has started construction of its new state of the art ER which will open Spring 2026. With this, we anticipate parking may be a challenge for some our surgical patients and families. Parking spaces are limited but are available for all Surgical, obstetrics, and ER patients sharing this lot. If you arrive and find you are having a hard time finding a parking space, please note that we understand the challenges, please drive around the hospital and park near Hospital Entrance 1. When you enter this entrance, you can ask a volunteer to direct or take you back to the surgical waiting area to check in. We appreciate everyone?s understanding of these expected challenges while we build for your future. Report to the Outpatient Waiting Room, entrance under the green pavilion located off [facility] [address], at time __10:30 AM on date __01/24/25 . Planned Procedure Time: _12:30PM .? Time changes happen often and if your time is changed the preop area will call you the afternoon before. - You and your visitor will be asked to self-screen and do not enter if you have any COVID symptoms. Please call surgeon if you need to reschedule. - A mask is optional within the hospital at this time. Patients may have clear liquids (water, carbonated beverages, clear teas, apple juice) until 3 hours prior to surgery( 9:30 AM) with a maximum of 20 ounces. - No food from midnight until time of surgery and no smoking, or chewing tobacco (or any form of nicotine). No chewing gum, candy or mints. - Take only the following medications with a SIP of water on the morning of surgery: EYE DROP DO NOT STOP ANY OF YOUR OTHER PRESCRIPTION MEDICATIONS PRIOR TO SURGERY EXCEPT THE FOLLOWING Hold all vitamins and supplements for 3 days per anesthesiologist LAST DOSE 01/20/25 MAY CONTINUE___ASPIRIN PER DR BARRIOS DO NOT TAKE MORNING OF SURGERY Please no make-up, nail [place], hairspray, perfume, deodorant, or body powder the day of surgery.? No jewelry (including any body piercings) or valuables the day of surgery, leave them at home.? Please take a shower or bath the night before, or the morning of, surgery with an antibacterial soap.? Wear comfortable, loose fitting clothing.? Children are encouraged to wear pajamas. - Jewelry must be removed prior to entering the operating room.? Rings and piercings that are not removed may be cut off. - The hospital will not accept responsibility for valuables.? - Please leave all valuables, including medications, at home the day of surgery. If you are going home after surgery, a licensed charter driver must drive you home.? - NO public transportation without another adult if you receive anesthesia. - We recommend that an adult stay with you for 24 hours following discharge. - We also recommend that you do not drive, make important decision, drink alcoholic beverages, or take any drugs that were not prescribed by your health care provider for at least 24 hours after your discharge time. For Pediatric surgeries, we recommend two adults accompany the child home. Follow any additional instructions given to you from your surgeon. Telephone instructions given to _PATIENT and asked if any additional questions and then verbalized understanding. Patient advised to call surgeon office or pre surgery nurse liaison [phone] if any additional questions.
[2025-01-20 10:02] VITALS: BMI 25.8
[2025-01-24] VITALS (11 sets, daily range): BP systolic 126–154; BP diastolic 70–94; PULSE 83–95; RESP 16–20; TEMP 36.3–36.8; O2SAT 90–100; BMI 26.2
--- NOTE | ~2025-01-24 | NM_ITS ---
EXAMINATION: NM sentinel node inject only DATE: 01/24/2025 13:17 INDICATION: Left breast cancer TECHNIQUE: 1.05 mCi Tc-99m Lymphoseek was injected in the left breast by Dr. Garcia. Radiologist was not present for the procedure. No images were obtained. IMPRESSION: 1. Left breast sentinel lymph node radiopharmaceutical injection. Reviewed, dictated and finalized at location A.
--- OUTSIDE RECORDS SUMMARY | 2025-01-24 00:44 | XMS_ITS | Clinical Summary ---
Author Organization [facility] Address [address] [place] [address] Phone Care Team Providers Care Ambulatory Care Coordinator Name Role Phone Eliseo Rausch MD Primary Care Provider [phone] Frank Lloyd DO Unavailable [phone] Allergies No known active allergies Medications [...] Recently Relevant to Health Maintenance Care Teams Ambulatory Care Coordinator Relationship Specialty Start Date End Date Eliseo Rausch MD [address] [place] [address] PCP - General Family Medicine 11/14/15 Frank Lloyd DO [address] [place] [address] Gastroenterology 11/14/15
--- OUTSIDE RECORDS SUMMARY | 2025-01-24 00:44 | XMS_ITS | Clinical Summary ---
Author Organization [facility] Ryan linton Kait Address [address] [place] [address] Care Team Providers Care Transfer Driver Name Role Phone Unavailable Primary Care Provider [...] Abstract 01/10/2025 10:30 AM CDT Office Visit [facility] Oncology and [facility] [address] [place] [id number] Lamont Sanderson MD Malignant neoplasm of upper-outer quadrant of left breast in female, estrogen receptor positive (CMS/HCC) (Primary Dx) 01/09/2025 Abstract [facility] Oncology [facility] [address] [place] [address] Lamont Sanderson MD from Last 3 Months [...] st Contact Info) Description 02/22/2025 11:15 AM ROBOTIC MACHINE OPERATOR Office Visit [facility] Oncology and Hematology [facility] [address] [place] [address] [facility] [address] [place] [address] Lamont Sanderson MD [address] [facility] [address] [place] [address] Health Maintenance Due Date Last [...]
--- OUTSIDE RECORDS SUMMARY | 2025-01-24 00:44 | XMS_ITS | Clinical Summary ---
Author Organization [facility] Address [address] [place] [address] Care Team Providers Care Investment Banking Analyst Name Role Phone Nicole Alexander MD Primary [...] on file Legal Sex Female 2:46 AM SUPERVISOR CASE LOADING Gender Identity Not on file Sexual Orientation Not on file Obstetrics History Last Filed Vital Signs Vital Sign Reading Time Taken Comments Blood Pressure 148/87 03/13/2021 11:11 AM SUPERVISOR CASE LOADING Pulse 84 03/13/2021 11:11 AM SUPERVISOR CASE LOADING Temperature 36.7 C (98.1 F) 03/13/2021 11:11 AM SUPERVISOR CASE LOADING Respiratory Rate 16 03/13/2021 11:1 1 AM SUPERVISOR CASE LOADING Oxygen Saturation 95% 03/13/2021 11: 11 AM SUPERVISOR CASE LOADING Inhaled Oxygen Concentration - - Weight 73.3 kg (161 lb 11.2 oz) 021 11:11 AM SUPERVISOR CASE LOADING Height 167.6 cm (5' 6) 03/13/2021 11:1 1 AM SUPERVISOR CASE LOADING Body Mass Index 26.1 03/13/2021 11:11 AM SUPERVISOR CASE LOADING Plan of Treatment Not on file Medical Devices Implanted Type Area Drum Tester Device Identifier Shelf Expiration Date Model / Serial / Lot [employer] Inlay [place] 6fr 24cm Pusher Fluoro Marker Atraumatic Insertion - [id number] Implanted:Qty: 1 on 09/22/2017 by Alvaro Gee MD at [facility] Stent Right: Urethra [employer] 02/27/2022 [id number] / / Description:Bard Shanna caruso 6x24 Insurance [facility] PPO MEDICARE HUMAN CLAIMS OFFICE AETNA SENIOR SUPPLEMENT CIGNA MEDICARE AETNA SENIOR SUPPLEMENT Care Teams Investment Banking Analyst Relationship Specialty Start Date End Date Nicole Alexander MD [address] [facility] [address] [facility] [address] [place] [address] PCP - General 12/13/20
[2025-01-24] MEDS: LACTATED RINGERS 1,000 ML 30 ML IV CONT ×2 (11:00→16:06)
[2025-01-24] MEDS: ACETAMINOPHEN 500 MG TABLET 1000 MG PO (11:07)
[2025-01-24] MEDS: LIDOCAINE/PRILOCAINE CREAM 2.5-2.5% TUBE 1 EACH TOPICAL (11:07)
--- NOTE | 2025-01-24 11:33 | WPDHPUPDATE1 ---
History and Physical Update Update Date/Time: 01/24/25 11:33 - Left total mastectomy, prophylactic right total mastectomy, left sentinel lymph node biopsy, and injection of Lymphoseek and methylene blue for sentinel lymph node mapping. History and Physical has been reviewed, including an updated exam of the patient. There are NO changes in the patient's condition. Risks, benefits, and alternatives have been discussed and questions answered. Patient agrees to proceed with procedure.
--- NOTE | 2025-01-24 12:21 | WPDANESEPPF ---
Anes - Initial Pre Proc Eval Procedure: Operation Date: 01/24/25 12:30 Proposed Procedures p Left Total Mastectomy, Prophylactic Right Total Mastectomy, Left [place] Lymph Node Biopsy, Injection of Lymphoseek and Methylene Blue for [place] Node Mapping - Sherry Garcia MD Date/Time: 01/24/25 12:21 Surgeon: Sherry Garcia MD Pre Op Diagnosis: malignant neoplasm left breast Patient Data Age: 69 Gender: F Height: 1.68 m Weight: 73.7 kg Last Vital Signs Temp 97.4 F L 01/24/25 10:40 Pulse 85 01/24/25 10:40 Resp 16 01/24/25 10:40 BP 149/94 H 01/24/25 10:40 Pulse Ox 98 01/24/25 10:40 O2 Del Method Room Air 01/24/25 10:40 Allergies Allergy/AdvReac Type Severity Reaction Status Date / Time No Known Allergies Allergy Verified 01/24/25 10:52 Home Medications ?Medication ?Instructions ?Recorded ?Confirmed ?Type aspirin 81 mg capsule 81 mg PO DAILY 02/03/21 01/24/25 History cholecalciferol (vitamin D3) 25 25 mcg PO DAILY 02/03/21 01/24/25 History mcg (1,000 unit) capsule spironolactone 100 mg tablet 100 mg PO BID 02/03/21 01/24/25 History multivitamin (Daily Multi-Vitamin 1 tablet PO DAILY 01/20/25 01/24/25 History tablet) sodium chloride 5 % eye drops 1 drp EACH EYE BID 01/20/25 01/24/25 History ([place]) Patient hx anesthesia problems: none Family hx anesthesia problems: none Results Review: All pre-operative results and documents have been reviewed as part of the pre-operative evaluation. [facility] Past Medical History Medical History Elevated BP without diagnosis of hypertension Right nephrolithiasis Right lower quadrant abdominal pain Loss of appetite Acute flank pain Subarachnoid bleed Hx of pneumothorax Family History Family History Mother Diabetes mellitus, Onset Age: 96 Hypertension, Onset Age: 96 Family history of cardiovascular disease, Onset Age: 96 Cerebrovascular accident, Onset Age: 96 Sibling Diabetes mellitus Patient's brother is in good health Family history of arthritis Family history of malignant neoplasm, Onset Age: 40 Father Diabetes mellitus, Onset Age: 71 Hypertension, Onset Age: 71 Family history of lung cancer, Onset Age: 71 Social History Social History Social History: Smoking status: Never smoker Second hand tobacco smoke exposure: No Alcohol intake: never Substance use: never Substance use type: does not use Do You Feel Safe in your Home?: Yes Lack of Transportation: No Lack of Food: Never True Current Housing: I Have Housing Concerned About Future Housing: No Difficulty Paying Gas/Electric Bills: No Difficulty Paying for Meds: No Currently Unemployed: No Education: Master's Degree or Higher Difficulty w/ Childcare or Family Care: No Living arrangements: alone Occupation/Education: retired Gender identity (if verbalized by the patient): Female Sexual Orientation (if Verbalized by the Patient): Straight or Heterosexual Spiritual care concerns: No Anes - Eval Final PreProcedure Day of Procedure 01/24/25 12:21 Patient weight: normal Lungs: normal air movement Airway: Mallampati scale class II Neurological: alert and oriented Last oral intake: >/= 8 hours ASA classification: II Emergent: no Anesthetic plan: proceed Anesthesia type and monitoring: general ETT and standard monitoring Results Review: All pre-operative results and documents have been reviewed as part of the pre-operative evaluation. Borderline HTN, hyperlipidemia, no meds, pt active walking 1-2 fos, no cp or sob. Informed Consent: The patient's anesthetic plan and its attendant risks and benefits were discussed with the patient/family/POA. Questions were solicited and answers provided to the satisfaction of the patient/family/POA.
[2025-01-24] MEDS: ceFAZolin 2 GM in SODIUM CHLORIDE 0.9% IV 50 ML 100 ML IVPB (12:48)
[2025-01-24] MEDS: METHYLENE BLUE 0.5% INJ 10 ML AMPULE XX (13:32)
[2025-01-24] MEDS: BUPIVACAINE/EPINEPHRINE 0.5% 50 ML VIAL 40 ML INFILTRATE (13:34)
--- NOTE | 2025-01-24 13:51 | S_PTH ---
PATIENT: Migdalia Bond LOC: [facility] U#:[id number] AGE/SX: 69/F ROOM: RE01/24/[address]: Sherry Garcia MD : 1955 BED: DIS: 01/25/2025 SPEC #: [id number] RECD: 01/24/25 14:01 STATUS: JARROD REScott #: [id number] GAYE: 01/24/25 13:[address]: Sherry Garcia DEPT: [facility] Surgical RECD BY: Bora Lagos ENTERED: 01/24/25 14:02 SP TYPE: Surgical OTHR DR: Chico Parker MD Tissues: A - [place] [address] Breast B - Breast Mastectomy C - Breast Mastectomy Procedures: Colindres Keratin Hematoxylin and Eosin Stain Gross and Microscopic Level 5
--- NOTE | 2025-01-24 15:55 | W.PM.PROC2 ---
Procedure Note - Detailed Date of Procedure 01/24/25 Pre-op Diagnosis Left breast invasive lobular carcinoma Post-op Diagnosis Same Procedure Performed 1. Left total mastectomy. 2. Prophylactic right total mastectomy. 3. Left sentinel lymph node biopsy. 4. Injection of Lymphoseek and methylene blue for sentinel lymph node mapping. Surgeon Sherry Garcia MD Anesthesia General Description of Procedure Patient was identified in the preoperative holding area where I performed Lymphoseek injection for sentinel lymph node mapping. Patient was then brought to the operating room, she was placed supine operating table sequential compression devices were applied. General anesthesia was induced without difficulty. I injected diluted methylene blue for dual tracing in subdermal plane in periareolar area. Bilateral chest and left axillary areas were prepped draped in sterile fashion.? The Neoprobe was used to scan the left axilla and a small incision was made overlying this area that was incorporated into the mastectomy incision laterally. Dissection was carried down through the subcutaneous tissue and the clavipectoral fascia was encountered and opened. I was able to identify a hot node using the Neoprobe. The sentinel lymph node 1 was gently grasped and excised using the LigaSure device. It was sent to pathology as a fresh specimen. The ex vivo count was 12,634. the Neoprobe was used to scan the axilla again for any areas of radio activity of at least 10% or more of the original count in no other areas were identified. The axillary incision was irrigated with saline hemostasis was assured. The clavipectoral fascia was approximated with a running 2 0 Vicryl. Attention was then turned to the left breast. An elliptical incision encompassing the nipple areolar complex was made and dissection was carried down through the subcutaneous tissue and continued through the thin areolar tissue plane between the subcutaneous tissue with the breast tissue superiorly to the inferior border of the clavicle.? We then continued our dissection medially to the lateral aspect of the sternum, inferiorly to the inframammary fold and laterally to latissimus.? Once this was performed the breast tissue along with the pectoralis fascia was dissected off the pectoralis muscle posteriorly.? The mastectomy specimen was then marked short stitch superior long stitch lateral stitch lateral for orientation.? The specimen was then sent to pathology as a fresh specimen.? Hemostasis was assured.? Attention was then turned to the right breast. An elliptical incision was again made around the right nipple areola complex, dissection was carried down to the subcutaneous tissue until the thin areolar tissue plane was encountered.? This was then dissected superiorly to the inferior aspect of the clavicle, medially to the lateral aspect of the sternum, laterally to the latissimus dorsi, and inferiorly to the inframammary fold.? The breast along with the pectoralis fascia was then dissected off the pectoralis muscle and the specimen was oriented with a short stitch superiorly and long stitch laterally, and sent to pathology as the fresh specimen.? Hemostasis was assured.? On both mastectomy incisions a 7 [place]er flat drain was placed above the pectoralis muscle and secured to the skin with a silk suture. The incision was then closed with interrupted 3-0 Vicryl followed by 4-0 Monocryl in a subcuticular fashion. Dermabond was applied followed by fluffs and a binder. She was awoken from anesthesia and taken to the recovery in stable condition. All needles, instruments, sponge counts were correct as reported by the operating room staff. Patient tolerated the procedure well with no immediate complications. Estimated Blood Loss 40 Drains Yes Pathology Yes Complications No immediate complications Condition Stable Disposition PACU [facility] Billing Surgery - Charge Forward: Surgery Billing ([id number], [id number] - R , [id number] , [id number] )
--- NOTE | 2025-01-24 17:02 | OBPPTRN ---
Patient transferred to post room #289 via bed. Support person present. Oriented to unit, room, information board, and admission packet. Patient verbalizes understanding.
[2025-01-24] MEDS: LACTATED RINGERS 1,000 ML 100 ML IV CONT (17:48)
[2025-01-24] MEDS: SODIUM CHLORIDE 2% OP SOLN 15 ML BTL 1 DROP EACH EYE (17:48)
[2025-01-25 04:55] VITALS: BP 148/88; PULSE 78; RESP 17; TEMP 36.8; O2SAT 96
--- NOTE | 2025-01-25 07:55 | P.DS_ITS ---
DS: Admitting Diagnosis Discharge Date 01/24/2025 Admitting Diagnosis Left breast invasive lobular carcinoma DS: Discharge Diagnosis Discharge Diagnosis (1) Invasive lobular carcinoma of left breast in female: Code(s): C50.912 - Malignant neoplasm of unspecified site of left female breast Status: Acute (2) S/P bilateral mastectomy: Code(s): Z90.13 - Acquired absence of bilateral breasts and nipples Status: Acute Plan - follow-up in 1 week with breast surgery for drain management. DS: Summary Hospital Course Hospital Course: patient was admitted postop overnight for observation after undergoing bilateral mastectomy with left sentinel lymph node biopsy for surgical management of left breast invasive lobular carcinoma. Overnight, patient did very well. She is currently tolerating a regular diet, pain is well controlled on p.o. pain meds and she is ambulating without assistance in voiding. Patient was deemed ready for discharge on postop day 1. Time spent discussing smoking cessation with patient: 3 to 10 minutes Status at Discharge Functional status at discharge: independent ambulation Overall status at discharge: patient is back to baseline Time Spent with Patient Time attestation: Total time spent providing and/or coordinating discharge services: Time spent: Less than 30 minutes Exam Const: General: comfortable and no acute distress HENMT: Face/Nose/Sinus: Normal nares present Eyes: General: appearance normal, both eyes and all related structures Resp: Effort & Inspection: normal respiratory effort Cardio: Rate: regular rate GI: GI Palp: Yes Soft to palpation Skin: General skin exam: normal color Other: Bilateral mastectomy incisions are well approximated with no fluctuance or erythema. There is mild ecchymosis on the right side central area but no crepitus. Drains have sanguinous fluid, no external bleeding noted. Extrem: General: normal to inspection Psych: Mental Status: mental status grossly normal DS: Data Data Completed and Pending Pending studies at discharge: Pending at discharge 01/24/25 13:51 Surgical [PTH] Routine Surgical [PTH] Routine 01/24/25 15:24 Surgical [PTH] Routine Discharge Plan Discharge Patient Disposition: Home Discharge Instructions: Sherry Garcia MD [facility] [address] [place] [address] Post-operative Discharge Instructions Diet: As tolerated Activity: Avoid overhead movements with the affected arm/side for 2 weeks. You should walk at least 3-4 times daily, but do not exert yourself. Ok to go up and down stairs. Dressing: Wear the compression bandage/binder at all times, including at night while sleeping. Patients with Drain: No showers or baths while drain is in place. Ok for sponge baths. Drain Care: Strip the drain tubing at least once a day, and empty drain. Record the drain output and bring record to your follow up visit. Mastectomy patients WITH Drains ONLY: Return to the office in 1 week for post- op follow up visit. Call the office with any questions or concerns in the meantime. If after hours, please call the wink cutter operator to be connected to the surgeon. If you have an emergency , call 911 or go to the nearest ER. Patient Language: Tajik Stand Alone Forms: General Discharge Instructions Follow-up/Referrals: Sherry Garcia MD [Physician, Breast Surgery] Discharge Medications: New hydrocodone-acetaminophen 5-325 mg tablet 1 tablet PO Q6H PRN (Reason: pain) Qty: 20 0RF Continued cholecalciferol (vitamin D3) 25 mcg (1,000 unit) capsule 25 mcg PO DAILY spironolactone 100 mg tablet 100 mg PO BID multivitamin [Daily Multi-Vitamin] Tablet 1 tablet PO DAILY sodium chloride [[place]] 5 % drops 1 drp EACH EYE BID Held aspirin 81 mg capsule 81 mg PO DAILY Hold Instructions: Resume on 01/27/25. Hold for 2 days
[2025-01-25 08:25] VITALS: BP 145/86; PULSE 82; RESP 16; TEMP 36.9; O2SAT 91
[2025-01-25] MEDS: SPIRONOLACTONE 50 MG TABLET 100 MG PO (09:17)
[2025-01-25] MEDS: CHOLECALCIFEROL (VITAMIN D3) 25 MCG (1,000 UNITS) TABLET PO (09:17)
[2025-01-25] MEDS: DOCUSATE SODIUM 100 MG CAPSULE PO (09:18)
[2025-01-25] MEDS: SODIUM CHLORIDE 2% OP SOLN 15 ML BTL 1 DROP EACH EYE (09:18)
[2025-01-25 09:20] VITALS: PULSE 82; RESP 16; O2SAT 91
--- NOTE | 2025-01-25 09:58 | PC.NURSE ---
Drain Output: Lt 15 ml; Rt 10 ml.
== END 2025-01-25 10:15 | disposition home or self-care (01) ==
LOC: ANHSURGERY 10:30 → ANHOB2 16:59
PROVIDERS: PCP Family Medicine; Visit Provider Surgery
PROC: (CPT 19303; principal; 2025-01-24 12:30)
DX: C50.912 Malignant neoplasm of unspecified site of left female breast (principal); L91.0 Hypertrophic scar; I10 Essential (primary) hypertension; E78.5 Hyperlipidemia, unspecified; Z79.82 Long term (current) use of aspirin; Z17.411 Hormone receptor positive with human epidermal growth factor receptor 2 negative status; Z80.1 Family history of malignant neoplasm of trachea, bronchus and lung; Z82.49 Family history of ischemic heart disease and other diseases of the circulatory system
CPT/HCPCS: 19303; 38525; 38900; 38792; 88307; 88342; 99199; J0690; A9270; A9520; J1100; J2003; J2250; J2270; J2405; J2704; J3010; J7120; Q9968

== ENCOUNTER 2025-02-09 14:24 | Outpatient (CLI) | payer MEDICARE, SELFPAY ==
--- NOTE | ~2025-02-09 | US_ITS ---
EXAMINATION: US breast RT limited HISTORY: 69-year old female; Status bilateral mastectomy presents for evaluation for postoperative seroma/fluid collection. COMPARISON: 09/23/2024 FINDINGS: Targeted ultrasound of the right breast was completed. Within the mastectomy bed inferior to the surgical scar, corresponding to the area of concern, there is a 6.8 x 5.3 x 1.5 cm fluid collection with internal septations, no internal vascularity/intramural nodule. IMPRESSION: Postsurgical fluid collection. BI-RADS 2, BENIGN Recommend continued screening mammography. Clinical follow-up. Reviewed, dictated and finalized at location B.
--- OUTSIDE RECORDS SUMMARY | 2025-02-09 15:26 | XMS_ITS | Clinical Summary ---
Author Organization [facility] Address [address] [place] [address] Phone Care Team Providers Care Rug Renovator Name Role Phone Eliseo Rausch MD Primary Care Provider [phone] Frank Lloyd DO Unavailable [phone] Allergies No known active allergies Medications [...] Recently Relevant to Health Maintenance Care Teams Rug Renovator Relationship Specialty Start Date End Date Eliseo Rausch MD [address] [place] [address] PCP - General Family Medicine 11/14/15 Frank Lloyd DO [address] [place] [address] Gastroenterology 11/14/15
--- OUTSIDE RECORDS SUMMARY | 2025-02-09 15:26 | XMS_ITS | Encounter Summary ---
Author Organization [facility] Address [address] [place] [address] Care Team Providers Care Attacher Name Role Phone Unavailable Primary Care Provider Unavailabl e Encounter Details Date Type Department Care Team (Late st Contact Info) Description 02/07/2025 External Device Data [facility] ABSTRACTION Provider, Abstract NO ADDRESS ON FILE Social History Tobacco Use Types Packs/Day Years Used Date Smoking Tobacco: Never Smokeless Tobacco: Never Alcohol Use Standard Drinks/Week Comments Never 0 (1 standard drink = 0.6 oz pur e alcohol) Comments Unknown Sex and Gender Information Value Date Recorded Sex Assigned at Not on file Legal Sex Female 10:26 AM CDT Gender Identity Not on file Sexual Orientation Not on file documented as of this encounter Plan of Treatment Upcoming Encounters Date Type Department Care Team (Late st Contact Info) Description 02/22/2025 11:15 AM UNDERWEAR FINISHER Office Visit [facility] Oncology and Hematology - [place] [address] [facility] [address] [place] [address] Lamont Sanderson MD [address] [facility] [address] [place] [address] documented as of this encounter Visit Diagnoses Not on filedocumented in this encounter
--- OUTSIDE RECORDS SUMMARY | 2025-02-09 15:26 | XMS_ITS | Encounter Summary ---
Author Organization [facility] Address [address] [place] [address] Phone Care Team Providers Care Community Health Promoter Name Role Phone Eliseo Rausch MD Primary Care Provider [phone] Nicole Alexander MD Primary Care Provider Eliseo Rausch MD Primary Care Provider [phone] Nicole Alexander MD Primary Care Provider Encounter Details Date Type Department Care Team (Late st Contact Info) Description 08/13/2017 Orders Only [facility] ProviderJana MD [address] [place] [address] Social History Tobacco Use Types Packs/Day Years Used Date Smoking Tobacco: Never Comments Unknown Sex and Gender Information Value Date Recorded Sex Assigned at Not on file Legal Sex Female 2:46 AM DAIRY SCIENTIST Gender Identity Not on file Sexual Orientation [...] on filedocumented in this encounter Care Teams Community Health Promoter Relationship Specialty Start Date End Date Eliseo Rausch MD [address] [place] [address] PCP - General 08/13/17 08/13/17 Nicole Alexanedr MD [address] [facility] [address] [place] [address] PCP - General 08/14/17 10/29/17 Eliseo Rausch MD [address] [place] [address] PCP - General 10/30/17 12/12/20 Nicole Alexander MD [address] [facility] [address] [place] [address] PCP - General 12/13/20 documented as of this encounter
--- OUTSIDE RECORDS SUMMARY | 2025-02-09 15:26 | XMS_ITS | Encounter Summary ---
Author Organization [facility] Address [address] [place] [address] Care Team Providers Care Chief Service Dispatcher Name Role Phone Unavailable Primary Care Provider Unavailabl e Encounter Details Date Type Department Care Team (Late st Contact Info) Description 02/08/2025 External Device Data STL ABSTRACTION Provider, Abstract [...] st Contact Info) Description 02/22/2025 11:15 AM CONTENT STRATEGIST Office Visit [facility] Oncology and Hematology - [place] [address] [facility] [address] [place] [address] Lamont Sanderson MD [address] [facility] [address] [place] [address] documented as of this encounter Visit Diagnoses Not on filedocumented in this encounter
--- OUTSIDE RECORDS SUMMARY | 2025-02-09 15:26 | XMS_ITS | Clinical Summary ---
Author Organization [facility] Address [address] [place] [address] Care Team Providers Care Railroad Car Cleaner Name Role Phone Nicole Alexander MD Primary [...] on file Legal Sex Female 2:46 AM RX SPECIALIST Gender Identity Not on file Sexual Orientation Not on file Obstetrics History Last Filed Vital Signs Vital Sign Reading Time Taken Comments Blood Pressure 148/87 03/13/2021 11:11 AM RX SPECIALIST Pulse 84 03/13/2021 11:11 AM RX SPECIALIST Temperature 36.7 C (98.1 F) 03/13/2021 11:11 AM RX SPECIALIST Respiratory Rate 16 03/13/2021 11:1 1 AM RX SPECIALIST Oxygen Saturation 95% 03/13/2021 11: 11 AM RX SPECIALIST Inhaled Oxygen Concentration - - Weight 73.3 kg (161 lb 11.2 oz) 021 11:11 AM RX SPECIALIST Height 167.6 cm (5' 6) 03/13/2021 11:1 1 AM RX SPECIALIST Body Mass Index 26.1 03/13/2021 11:11 AM RX SPECIALIST Plan of Treatment Not on file Medical Devices Implanted Type Area Bank Examiner Device Identifier Shelf Expiration Date Model / Serial / Lot [employer] Inlay [place] 6fr 24cm Pusher Fluoro Marker Atraumatic Insertion - [id number] Implanted:Qty: 1 on 09/22/2017 by Alvaro Gee MD at [facility] Stent Right: Urethra [employer] 02/27/2022 [id number] / / Description:Bard Shanna caruso 6x24 Insurance [facility] PPO MEDICARE HUMAN CLAIMS OFFICE AETNA SENIOR SUPPLEMENT CIGNA MEDICARE AETNA SENIOR SUPPLEMENT Care Teams Railroad Car Cleaner Relationship Specialty Start Date End Date Nicole Alexander MD [address] [facility] [address] [facility] [address] [place] [address] PCP - General 12/13/20
--- OUTSIDE RECORDS SUMMARY | 2025-02-09 15:26 | XMS_ITS | Clinical Summary ---
Author Organization [facility] Ryan linton Kait Address [address] [place] [address] Care Team Providers Care Cook Ship Name Role Phone Unavailable Primary Care Provider Unavailabl e Allergies No known active allergies Medications spironolactone (ALDACTONE) 100 mg tablet Take 100 mg by mouth 2 times daily. Active Active Problems No known active problems Encounters Date Type Department Care Team Description 02/08/2025 External Device Data STL ABSTRACTION Provider, Abstract 02/07/2025 External Device Data STL ABSTRACTION Provider, Abstract 01/17/2025 External Device Data STL ABSTRACTION Provider, Abstract 01/17/2025 External Device Data STL ABSTRACTION Provider, Abstract 01/17/2025 External Device Data STL ABSTRACTION Provider, Abstract 01/10/2025 10:30 AM CDT Office Visit [facility] Oncology and Hematology [facility] [address] [place] [address] Lamont Sanderson MD Malignant neoplasm of upper-outer quadrant of left breast in female, estrogen receptor positive (CMS/HCC) (Primary Dx) 01/09/2025 Abstract [facility] Oncology [facility] [address] [place] [address] Lmaont Sanderson MD from Last 3 Months Family [...] st Contact Info) Description 02/22/2025 11:15 AM FARM MACHINERY MECHANIC Office Visit [facility] Oncology and Hematology - [place] [address] [place] [address] [facility] [address] [place] [address] Lamont Sanderson MD [address] [facility] [address] [place] [address] Health Maintenance Due Date Last [...] INFLUENZA VACCINE (#1) 2024 COVID-19 Vaccine (3 - 2024-2 6 season) 2024 06/29/2020, 06/01/2020 COLORECTAL SCREENING 02/27/2026 02/28/2016 Colorectal Cancer Screening 02/27/2026 RSV VACCINE (60+ or ) (1 - 1-dose 75+ series) 2028 Insurance MEDICARE PART A AND B AETNA MEDICARE SUPP AESSI
== END 2025-02-09 14:25 | disposition home or self-care (01) ==
LOC: ANHFOHIMG 14:26
PROVIDERS: PCP Family Medicine; Visit Provider Surgery
DX: C50.912 Malignant neoplasm of unspecified site of left female breast (principal); Z90.13 Acquired absence of bilateral breasts and nipples
CPT/HCPCS: 76642

== ENCOUNTER 2025-02-22 07:22 | Outpatient (CLI) | payer MEDICARE, SELFPAY ==
--- NOTE | ~2025-02-22 | US_ITS ---
EXAMINATION: US breast RT limited HISTORY: 69-year old female; Status post bilateral mastectomy surgery presents for evaluation of postoperative seroma/fluid collection in the right side. COMPARISON: 02/09/2025 FINDINGS: Targeted ultrasound of the right mastectomy bed was completed. The previously seen post surgical fluid collection within the mastectomy bed has significantly reduced in size. Current measurement is 4.7 x 0.5 cm. In consultation with the referring surgeon, the decision was made to not perform an aspiration procedure during this visit. IMPRESSION: Resolving Postsurgical fluid collection in the right mastectomy bed . BI-RADS 2, BENIGN Clinical follow-up. Reviewed, dictated and finalized at location B. BOARD POSTER HELPER
--- OUTSIDE RECORDS SUMMARY | 2025-02-22 07:29 | XMS_ITS | Clinical Summary ---
Author Organization [facility] Address [address] [place] [address] Phone Care Team Providers Care Material Control Associate Name Role Phone Eliseo Rausch MD Primary Care Provider [phone] Frank Lloyd DO Unavailable [phone] Allergies No known active allergies Medications [...] Recently Relevant to Health Maintenance Care Teams Material Control Associate Relationship Specialty Start Date End Date Eliseo Rausch MD [address] [place] [address] PCP - General Family Medicine 11/14/15 Frank Lloyd DO [address] [place] [address] Gastroenterology 11/14/15
--- OUTSIDE RECORDS SUMMARY | 2025-02-22 07:29 | XMS_ITS | Clinical Summary ---
Author Organization [facility] Ryan linton Kait Address [address] [place] [address] Care Team Providers Care Steel Wool Machine Operator Name Role Phone Unavailable Primary Care Provider [...] Abstract 01/10/2025 10:30 AM CDT Office Visit [facility] Oncology and Hematology [facility] [address] [place] [address] Lamont Sanderson MD Malignant neoplasm of upper-outer quadrant of left breast in female, estrogen receptor positive (CMS/HCC) (Primary Dx) 01/09/2025 Abstract [facility] Oncology [facility] [address] [place] [address] Lamont Sanderson MD from Last 3 Months [...] st Contact Info) Description 02/22/2025 11:15 AM MEDICINAL PLANT PICKER Office Visit [facility] Oncology and Hematology - [place] [address] [facility] [address] [place] [address] Lamont Sanderson MD [address] [facility] [address] [place] [address] Health Maintenance Due Date Last Done Comments DTAP/TDAP/TD VACCINES (1 - Tdap) 1972 Traditional Medicare (ACO) A nnual Wellness Visit 1972 FIT-DNA Q 3 years 1998 FIT/FOBT [...]
--- OUTSIDE RECORDS SUMMARY | 2025-02-22 07:29 | XMS_ITS | Clinical Summary ---
Author Organization [facility] Address [address] [place] [address] Care Team Providers Care Composing Room Machinist Name Role Phone Nicole Alexander MD Primary [...] on file Legal Sex Female 2:46 AM PIPE SMOKER MACHINE OPERATOR Gender Identity Not on file Sexual Orientation Not on file Last Filed Vital Signs Vital Sign Reading Time Taken Comments Blood Pressure 148/87 03/13/2021 11:11 AM PIPE SMOKER MACHINE OPERATOR Pulse 84 03/13/2021 11:11 AM PIPE SMOKER MACHINE OPERATOR Temperature 36.7 C (98.1 F) 03/13/2021 11:11 AM PIPE SMOKER MACHINE OPERATOR Respiratory Rate 16 03/13/2021 11:1 1 AM PIPE SMOKER MACHINE OPERATOR Oxygen Saturation 95% 03/13/2021 11: 11 AM PIPE SMOKER MACHINE OPERATOR Inhaled Oxygen Concentration - - Weight 73.3 kg (161 lb 11.2 oz) 021 11:11 AM PIPE SMOKER MACHINE OPERATOR Height 167.6 cm (5' 6) 03/13/2021 11:1 1 AM PIPE SMOKER MACHINE OPERATOR Body Mass Index 26.1 03/13/2021 11:11 AM PIPE SMOKER MACHINE OPERATOR Plan of Treatment Not on file Medical Devices Implanted Type Area Senior Mortgage Loan Processor Device Identifier Shelf Expiration Date Model / Serial / Lot [employer] Inlay Citrus 6fr 24cm Pusher Fluoro Marker Atraumatic Insertion - [id number] Implanted:Qty: 1 on 09/22/2017 by Alvaro Gee MD at [facility] Stent Right: Urethra [employer] 02/27/2022 [id number] / / Description:Bard Shanna caruso 6x24 Insurance [facility] PPO [facility] HMO/PPO Address: [facility] [id number] [place] [address] MEDICARE HUMANA CLAIMS OFFICE AETNA SENIOR SUPPLEMENT CIGNA MEDICARE AETNA SENIOR SUPPLEMENT Care Teams Composing Room Machinist Relationship Specialty Start Date End Date Nicole Alexander MD [address] [facility] [address] [facility] [address] [place] [address] PCP - General 12/13/20
--- OUTSIDE RECORDS SUMMARY | 2025-02-22 07:29 | XMS_ITS | Encounter Summary ---
Author Organization [facility] Address [address] [place] [address] Phone Care Team Providers Care Machine I Coremaker Name Role Phone Eliseo Rausch MD Primary Care Provider [phone] Nicole Alexander MD Primary Care Provider Eliseo Rausch MD Primary Care Provider [phone] Nicole Alexander MD Primary Care Provider Encounter Details Date Type Department Care Team (Late st Contact Info) Description 08/13/2017 Orders Only [facility] ProviderJana MD [address] [place] [address] Social History Tobacco Use Types Packs/Day Years Used Date Smoking Tobacco: Never Comments Unknown Sex and Gender Information Value Date Recorded Sex Assigned at Not on file Legal Sex Female 2:46 AM PULP GRINDER Gender Identity Not on file Sexual Orientation [...] on filedocumented in this encounter Care Teams Machine I Coremaker Relationship Specialty Start Date End Date Eliseo Rausch MD [address] [place] [address] PCP - General 08/13/17 08/13/17 Nicole Alexander MD [address] [facility] [address] [place] [address] PCP - General 08/14/17 10/29/17 Eliseo Rausch MD [address] [place] [address] PCP - General 10/30/17 12/12/20 Nicole Alexander MD [address] [facility] [address] [place] [address] PCP - General 12/13/20 documented as of this encounter
== END 2025-02-22 07:23 | disposition home or self-care (01) ==
LOC: ANHFOHIMG 07:26
PROVIDERS: PCP Family Medicine; Visit Provider Surgery
DX: C50.912 Malignant neoplasm of unspecified site of left female breast (principal); Z90.13 Acquired absence of bilateral breasts and nipples
CPT/HCPCS: 76642

== ENCOUNTER 2025-03-22 10:54 | Outpatient (CLI) | payer MEDICARE, SELFPAY ==
--- NOTE | ~2025-03-22 | DEXA_ITS ---
Bone Density Report Name: NATHANIEL HIRSCH Age: 69 Sex: Female Ethnicity: White Date of : 1955 Indication: postmenopausal; screening for osteoporosis; parental hip fracture; height loss; prior fracture; Referring Provider: ОЛЕГ PACHECO Study: Bone densitometry was performed. Exam Date: March 22, 2025 Accession number: [id number] Bone Density: Region BMD T-score Z-score Classification AP Spine(L1-L4) 1.093 0.4 2.6 Normal Femoral Neck (Left) 0.687 -1.5 0.4 Osteopenia Total Hip (Left) 0.890 -0.4 1.2 Normal Femoral Neck (Right) 0.672 -1.6 0.3 Osteopenia Total Hip (Right) 0.861 -0.7 0.9 Normal Total Hip Mean 0.876 -0.6 1.1 Normal World Health Organization criteria for BMD impression classify patients as: Normal (T-score at or above -1.0), Osteopenia (T-score between -1.0 and -2.5), or Osteoporosis (T-score at or below -2.5). 10-year Fracture Risk: FRAX not reported because: Prior hip or vertebral fracture Previous Exams: Region Exam Age BMD T-score BMD Change BMD Change Date g/cm2 vs Baseline vs Previous AP Spine (L1-L4) 03/22/2025 69 1.093 0.4 0.011 (1.1%) 0.011 (1.1%) 05/16/2022 66 1.082 0.3 Total Hip(Left) 03/22/2025 69 0.890 -0.4 0.001 (0.1%) 0.001 (0.1%) 05/16/2022 66 0.889 -0.4 Total Hip(Right) 03/22/2025 69 0.861 -0.7 0.000 (0.0%) 0.000 (0.0%) 05/16/2022 66 0.862 -0.7 *Denotes significance at 95% confidence level, LSC for AP Spine = 0.022 g/cm2, LSC for Total Hip = 0.027 g/cm2 Clinical Information Provided by Patient: Have had a previous hip or vertebral fracture Has had a low trauma fracture Parent has had a hip fracture Has used the following medications: Vitamin D, Calcium Patient maximum height was 66 Menopause Age: 53 Drinks caffeinated beverages Onset of menses at age 11 Number of children 4 Impression: The patient has low bone mass, based on the Right Femoral Neck T-score. The patient has risk factors, including: parental hip fracture, previous fracture. No significant bone loss was observed. Discussion: INCREASED RISK OF FRACTURE DUE TO HISTORY OF FRACTURE. The patient's previous fracture puts the patient at high risk of a future fracture. In untreated patients, the risk of osteoporotic fracture increases approximately two-fold for each 1.0 SD decrease in T-score. Low bone density is not the only risk factor for fracture; also consider factors such as patient's age, frailty or poor health, risk of falling, risk of injury, previous osteoporotic fracture, family history of osteoporosis, cigarette smoking, low body weight, etc. Not everyone with a low trauma fracture has osteoporosis; osteomalacia and other metabolic bone disorders should also be considered. Patients who have osteoporosis should be evaluated for specific diseases and conditions (secondary causes) that may cause or contribute to bone loss and fracture risk. National Osteoporosis Foundation (NOF) recommends pharmacologic intervention for patients with a prior hip or vertebral fracture regardless of BMD T-score. The patient should follow a healthful lifestyle (good nutrition with adequate calcium and vitamin D, and appropriate weight-bearing exercise). Follow-Up: Consider a repeat BMD and Vertebral Fracture Assessment (VFA) exam in 2 years or sooner if medically necessary, to reassess this patient's status. Reported by: SHAYNA on 03/22/2025 11:41:00 AM. Reviewed, dictated and finalized at location A.
--- OUTSIDE RECORDS SUMMARY | 2025-03-22 12:30 | XMS_ITS | Clinical Summary ---
Author Organization [facility] Address [address] [place] [address] Care Team Providers Care Deep Submergence Vehicle Crewmember Name Role Phone Nicole Alexander MD Primary [...] on file Legal Sex Female 2:46 AM REGULATORY AFFAIRS SPECIALIST Gender Identity Not on file Sexual Orientation Not on file Last Filed Vital Signs Vital Sign Reading Time Taken Comments Blood Pressure 148/87 03/13/2021 11:11 AM REGULATORY AFFAIRS SPECIALIST Pulse 84 03/13/2021 11:11 AM REGULATORY AFFAIRS SPECIALIST Temperature 36.7 C (98.1 F) 03/13/2021 11:11 AM REGULATORY AFFAIRS SPECIALIST Respiratory Rate 16 03/13/2021 11:1 1 AM REGULATORY AFFAIRS SPECIALIST Oxygen Saturation 95% 03/13/2021 11: 11 AM REGULATORY AFFAIRS SPECIALIST Inhaled Oxygen Concentration - - Weight 73.3 kg (161 lb 11.2 oz) 021 11:11 AM REGULATORY AFFAIRS SPECIALIST Height 167.6 cm (5' 6) 03/13/2021 11:1 1 AM REGULATORY AFFAIRS SPECIALIST Body Mass Index 26.1 03/13/2021 11:11 AM REGULATORY AFFAIRS SPECIALIST Plan of Treatment Not on file Medical Devices Implanted Type Area Vice President Network Device Identifier Shelf Expiration Date Model / Serial / Lot [employer] Inlay [place] 6fr 24cm Pusher Fluoro Marker Atraumatic Insertion - [id number] Implanted:Qty: 1 on 09/22/2017 by Alvaro Gee MD at [facility] Stent Right: Urethra [employer] 02/27/2022 [id number] / / Description:Bard Shanna caruso 6x24 Insurance [facility] PPO [facility] HMO/PPO Address: [facility] [id number] [place] [address] MEDICARE [facility] Address: [address] [address] [place] [address] HUMANA CLAIMS OFFICE AETNA SENIOR SUPPLEMENT CIGNA MEDICARE AETNA SENIOR SUPPLEMENT Care Teams Deep Submergence Vehicle Crewmember Relationship Specialty Start Date End Date Nicole Alexander MD [address] [facility] [address] [facility] [address] [place] [address] PCP - General 12/13/20
--- OUTSIDE RECORDS SUMMARY | 2025-03-22 12:30 | XMS_ITS | Encounter Summary ---
Author Organization [facility] Address [address] [place] [address] Phone Care Team Providers Care Pricing Consultant Name Role Phone Eliseo Rausch MD Primary Care Provider [phone] Nicole Alexander MD Primary Care Provider Eliseo Rausch MD Primary Care Provider [phone] Nicole Alexander MD Primary Care Provider Encounter Details Date Type Department Care Team (Late st Contact Info) Description 08/13/2017 Orders Only [facility] ProviderJana MD [address] [place] [address] Social History Tobacco Use Types Packs/Day Years Used Date Smoking Tobacco: Never Comments Unknown Sex and Gender Information Value Date Recorded Sex Assigned at Not on file Legal Sex Female 2:46 AM ASSEMBLER FITTER Gender Identity Not on file Sexual Orientation Not on file documented as of this encounter Functional Status documented as of this encounter Plan of [...] on filedocumented in this encounter Care Teams Pricing Consultant Relationship Specialty Start Date End Date Eliseo Rausch MD [address] [place] [address] PCP - General 08/13/17 08/13/17 Nicole Alexander MD [address] [facility] [address] [address] PCP - General 08/14/17 10/29/17 Eliseo Rausch MD [address] [place] [address] PCP - General 10/30/17 12/12/20 Nicole Alexander MD [address] [facility] [address] [address] PCP - General 12/13/20 documented as of this encounter
--- OUTSIDE RECORDS SUMMARY | 2025-03-22 12:30 | XMS_ITS | Clinical Summary ---
Author Organization [facility] Ryan linton Kait Address [address] [place] [address] Care Team Providers Care Dairy Truck Driver Name Role Phone Chico Parker MD Primary Care Provider [phone] Allergies No known active allergies Medications spironolactone (ALDACTONE) 100 mg tablet Take 100 mg by mouth 2 times daily. Active Active Problems No known active problems Encounters Date Type Department Care Team Description 02/22/2025 11:15 AM SCRIPT COORDINATOR Office Visit [facility] Oncology [facility] [address] [place] [address] Lamont Sanderson MD Osteopenia of multiple sites (Primary Dx) 02/08/2025 External Device Data STL ABSTRACTION Provider, Abstract 02/07/2025 External Device Data STL ABSTRACTION Provider, Abstract 01/17/2025 External Device Data STL ABSTRACTION Provider, Abstract 01/17/2025 External Device Data STL ABSTRACTION Provider, Abstract 01/17/2025 External Device Data STL ABSTRACTION Provider, Abstract 01/10/2025 10:30 AM CDT Office Visit [facility] Oncology [facility] [address] [place] [address] Lamont Sanderson MD Malignant neoplasm of upper-outer quadrant of left breast in female, estrogen receptor positive (CMS/HCC) (Primary Dx) 01/09/2025 Abstract [facility] Oncology [facility] [address] [place] [address] Lamont Sanderson MD from Last [...] Sign Reading Time Taken Comments Blood Pressure 177/115 02/22/2025 11:19 AM SCRIPT COORDINATOR Pulse 88 02/22/2025 11:13 AM SCRIPT COORDINATOR Temperature 36.4 C (97.5 F) 02/22/2025 11:13 AM SCRIPT COORDINATOR Respiratory Rate 16 02/22/2025 11:1 3 AM SCRIPT COORDINATOR Oxygen Saturation 98% 02/22/2025 11: 13 AM SCRIPT COORDINATOR Inhaled Oxygen Concentration - - Weight 75.7 kg (166 lb 12.8 oz) 025 11:13 AM SCRIPT COORDINATOR Height 167.6 cm (5' 6) 01/10/2025 10:3 7 AM CDT Body Mass Index 26.92 01/10/2025 10:37 AM CDT Plan of Treatment Upcoming Encounters Date Type Department Care Team (Late st Contact Info) Description 03/28/2025 4:30 PM SCRIPT COORDINATOR Telephone Check Up [facility] Oncology and Hematology - [place] [address] [facility] [address] [place] [address] Lamont Sanderson MD [address] [facility] [address] [place] [address] Health Maintenance Due Date Last [...] A AND B AETNA MEDICARE SUPP AESSI Care Teams Dairy Truck Driver Relationship Specialty Start Date End Date Chico Parker MD [address] [email or web address] [address] [place] [address] PCP - General Family Practice 02/22/25
--- OUTSIDE RECORDS SUMMARY | 2025-03-22 12:30 | XMS_ITS | Clinical Summary ---
Author Organization [facility] Address [address] [place] [address] Phone Care Team Providers Care Food Beverage Server Name Role Phone Eliseo Rausch MD Primary Care Provider [phone] Frank Lloyd DO Unavailable [phone] Allergies No known active allergies Medications [...] Recently Relevant to Health Maintenance Care Teams Food Beverage Server Relationship Specialty Start Date End Date Eliseo Rausch MD [address] [place] [address] PCP - General Family Medicine 11/14/15 Frank Lloyd DO [address] [place] [address] Gastroenterology 11/14/15
== END 2025-03-22 10:55 | disposition home or self-care (01) ==
LOC: ANHFOHIMG 10:56
PROVIDERS: PCP Family Medicine; Visit Provider Internal Medicine Hematology & Oncology
DX: Z13.820 Encounter for screening for osteoporosis (principal); M85.89 Other specified disorders of bone density and structure, multiple sites
CPT/HCPCS: 77080

== ENCOUNTER 2025-04-04 09:00 | Outpatient (RCR) | payer MEDICARE, SELFPAY ==
--- NOTE | 2025-03-02 17:27 | OPREHPOC ---
Outpatient Therapy Plan of Care This is a Multidisciplinary Plan of Care that may contain components documented by all disciplines (PT, OT, and ST.) PT Problem 1 PT Problem #1 Knowledge Deficit PT Goal 1 Goal / Goal Update 1. Patient will demonstrate improved postural awareness with ability to maintain upright sitting posture during BUE exercises with minimal cues. 2. Patient will be independent and compliant with individualized HEP including ROM, stretching, strength progression, and scar/soft tissue mobilization. Target Visit 8 PT Problem 2 PT Problem #2 Pain PT Goal 1 Goal / Goal Update Patient will report decreased chest wall and axillary tightness to improve tolerance for BUE mobility and daily functional tasks. Target Visit 10 PT Problem 3 PT Problem #3 Impaired Range of Motion PT Goal 1 Goal / Goal Update 1. Patient will demonstrate proper postural alignment and movement mechanics during overhead and pushing/pulling activities with minimal cueing . 2. Patient will achieve functional bilateral shoulder ROM to at least 150? flexion and abduction to allow for overhead ADLs and return to prior level of function. Target Visit 10 PT Problem 4 PT Problem #4 Impaired Endurance PT Goal 1 Goal / Goal Update Patient will improve activity endurance, demonstrating ability to complete upper-body therapeutic exercise program for 10?15 minutes without undue fatigue. Target Visit 10
--- NOTE | 2025-03-02 17:28 | PTOPEVAL1 ---
Assessment and note entered by Shannan Lester, PT Evaluation Information Assessment Status Evaluation Onset 01/24/2025 Subjective Information Pt reports difficulty bringing arms overhead. States she may need radiation and needs to improve ROM to the bilateral shoulders, radiation will be performed to the L armpit. Otherwise, she is feeling ok and not in pain. Reported Pain Level Pain Score 0: Self Report Additional Pain Score Comments 5/10 pain to bilateral shoulders with end range of active ER. Assessment PT Clinical Summary Pt. presents with BUE weakness, limited shoulder ROM, post-surgical pain, and reduced functional endurance following a recent double mastectomy; She plan to undergo radiation therapy which required full ROM of BUE in order to tolerate prolonged position. Her current impairments are also impacting the her ability to safely and independently perform ADLs including grooming, dressing, lifting light objects, and overhead reaching. Muscle strength is reduced across both shoulders and upper arms, likely due to post- operative soft-tissue restrictions, surgical incision discomfort, altered biomechanics, and guarded movement patterns. Mild post-surgical edema noted along chest wall and axillary regions, contributing further to decreased mobility. No signs of acute complications, but continued monitoring for lymphedema risk is recommended given surgical history. Pt. will benefit from skilled PT to address strength deficits, ROM limitations, post-operative pain, functional mobility decline, and self- management strategies, including education on proper movement patterns, lymphedema precautions, and gradual progression of exercise. Plan of Care Interventions Manual Therapy,Neuro Re-education,Patient/ Caregiver Education,Therapeutic Activities, Therapeutic Exercise PT Services Indicated Yes Treatment Frequency and 2x/wk x 10 visits Duration These treatments will address the objective and functional deficits as defined above. The patient will be advanced safely and appropriately in order for the patient to progress towards his/her prior level of function. Additional exercises will be introduced and as well as a comprehensive home exercise program upon discharge, if needed, ?to ensure carryover of functional gains achieved in the clinic. This treatment plan has been reviewed and agreement upon by the patient.
--- NOTE | 2025-04-04 10:32 | PTOPDC ---
Assessment and note entered by Shannan Lester, PT Discharge Information Assessment Status Discharge Onset 01/24/2025 Subjective Information Reports everything is good and she has been raising arm overhead without difficulty at this time. Sometimes feel sore after exercises. Reported Pain Level Pain Score 0: Self Report Assessment PT Clinical Summary Pt received 9 treatment sessions and demos excellent progress with therapy. She has met her goals and scored 0% on QUICK DASH; reports that she is currently undergoing radiation therapy without increased discomfort on the L arm. Good gains in mobility and strength and improved posture. Education provided for exercise progression and proper positioning and technique. She is compliant with HEPs from day one and is agreeable to DC today. Skilled PT discontinued. Plan of Care PT Services Indicated No
== END 2025-04-04 16:51 | disposition home or self-care (01) ==
LOC: ANHPT 09:00
PROVIDERS: PCP Family Medicine; Visit Provider Radiology Radiation Oncology
DX: Z74.09 Other reduced mobility (principal)
CPT/HCPCS: 97110; 97140; 97161; 97530